=== PATIENT | female | born 1965 | race African-American/Black ===

== ENCOUNTER 2018-05-16 15:41 | Inpatient (IN) | payer OTHER, SELFPAY ==
[2018-05-16 17:20] LABS: Base Excess-Venous -0.4 mmol/L (0 (+/- 2.5)); Bicarbonate (HCO3v) 23.1 mmol/L (1.0-85.0); CO2 Tension (PvCO2) 33.4 mmHg (41.0-51.0); Calcium, Ionized 1.02 mmol/L (1.12-1.32); Hemoglobin - Calc 12.3 g/dL (12.0-18.0); O2 Tension (PvO2) 47.4 mmHg (35.0-45.0); Potassium 4.3 mmol/L (3.4-4.7); T. Carbon Dioxide 24.1 mmol/L (1.0-85.0); pH (Venous) 7.447 (7.35-7.45); vO2 Saturation-calc 85.1 % (94-98)
--- NOTE | 2018-05-16 17:37 | RAD ---
THREE VIEWS RIGHT FOOT: 05/16/18 HISTORY: Swelling and ulcerations. COMPARISON: 03/12/03. FINDINGS: Again noted is amputation of the third and fourth toes at the level of the distal metatarsals. Previo usly seen periosteal reaction on prior exam has resolved. There are prominent erosions at the first t arsometatarsal joint and the base of the first metatarsal is displaced medially with respect to the f irst cuneiform bone. There is varus deformity of the second metatarsophalangeal joint without osseous erosions. No acute fracture is seen. Prominent degenerative changes are seen involving the tarsal rick cory. Findings at the first tarsometatarsal joint are probably related to osteoarthritis as well with associated erosions. There is irregularity and joint space narrowing involving the remaining tarsomet atarsal joints. No osseous destruction is seen on this exam. Prominent degenerative changes are also seen at the talonavicular joint. Tiny plantar calcaneal enthe sophyte is present. There is a pes planus deformity. There is soft tissue irregularity on the plantar aspect of the foot likely related to patient's known areas of ulceration and soft tissue wounds. IMPRESSION: 1. Findings likely related to prominent degenerative changes at the level of the mid foot and in volving the tarsometatarsal joints. There are prominent erosions and osteophytes involving the first tarsometatarsal joint with the base of the first metatarsal displaced medially. 2. Amputation of the third and fourth toes. 3. Pes planus deformity. 4. While no osseous destruction is seen to suggest osteomyelitis, MRI with and without IV contra st would be the better study of choice to evaluate for osteomyelitis. POS: JORJE
[2018-05-16 17:45] LABS: #Eosinphils 0.2 thou/uL (0.0-0.7); #Lymphocytes 1.6 thou/uL (1.20-3.40); #Monocytes 0.9 thou/uL (0.11-0.59); #Neutrophils 10.4 thou/uL (1.40-6.50); %Basophils 0.3 % (0.0-1.0); %Eosinophils 1.7 % (0.0-10.0); %Lymphocytes 12.3 % (21.0-51.0); %Monocytes 7.1 % (0.0-10.0); %Neutrophils 78.6 % (42.0-75.0); Hemoglobin 10.3 g/dL (12.0-16.0); Mean Corpuscular HGB CONC 33.9 g/dL (32.0-36.0); Mean Corpuscular Hemoglobin 27.1 pg (27.0-31.0); Mean Corpuscular Volume 79.9 fL (78.0-98.0); Mean Platelet Volume 7.8 fL (7.4-10.4); Platelet Count 500 thou/uL (130-400); White Blood Cell (WBC) Count 13.2 thou/uL (4.8-10.8)
[2018-05-16 17:48] LABS: ALT (SGPT) 9 U/L (8-55); AST (SGOT) 15 U/L (5-34); Albumin 3.4 g/dL (3.5-5.0); Alkaline Phosphatase 131 U/L (40-150); Anion Gap 17 mmol/L (10-20); BUN (Urea Nitrogen) 34 mg/dL (9.8-20.1); Bilirubin, Total 0.3 mg/dL (0.2-1.2); Calc. Creatinine Clearance 0 mL/min (70-130); Calcium 9.2 mg/dL (7.8-10.44); Carbon Dioxide 21 mmol/L (22-29); Chloride 97 mmol/L (98-107); Estimated GFR-MDRD 26; Globulin 5.8 g/dL (2.4-3.5); Glucose 311 mg/dL (70-105); Potassium 4.8 mmol/L (3.5-5.1); Protein, Total 9.2 g/dL (6.0-8.3); Sodium 130 mmol/L (136-145)
[2018-05-16] MEDS ORDERED: cefTRIAXone\\ROCEPHIN 1 GM VIAL ONE (18:07)
[2018-05-16] MEDS ORDERED: VANCOMYCIN/ RENALLY ADJUST ANTIBIOTICS IVPB PRN (20:11)
[2018-05-16] MEDS ORDERED: Acetaminophen 650 MG Suppository PR PRN (20:12)
[2018-05-16] MEDS ORDERED: Bisacodyl 5 MG TAB PO PRN (20:12)
[2018-05-16] MEDS ORDERED: Ondansetron HCl/PF 4 MG/2 ML Vial IVP PRN (20:12)
[2018-05-16] MEDS ORDERED: Dextrose 5% in Water 1,000 ML IV PRN (20:40)
--- NOTE | 2018-05-16 20:50 | HP ---
DATE OF ADMISSION: 05/16/2018 PRIMARY CARE PROVIDER: Rodrigue Poole M.D. CHIEF COMPLAINT: Right foot ulcer. HISTORY OF PRESENT ILLNESS: Ms. Lugo is a pleasant 53-year-old lady who was seen at [facility] on 05/16/2018. She reports that approximately a month ago, she stepped on a glass. She was seen at [facility] and was started on antibiotics, but she cannot recall the name of the antibiotic. She was also seen by Podiatry service. She reports that the ulcers healed well approximately 2 weeks ago. She was advised to soak the foot, which she has been doing on a daily basis. She started having some blood from the wound yesterday when she was soaking her foot. She was seen by her urologist today and sent to the emergency room. She denies any fevers or chills. She denies any nausea, vomiting, diarrhea or abdominal pain. She denies any pain in her right foot, but reports that she sometimes has tingling-like sensation over the foot. The patient also reports that while the initial ulcer was only on the plantar aspect of the foot, now it appears to have extended around her foot to the top of her foot. REVIEW OF SYSTEMS: All other systems reviewed and found to be negative. PAST MEDICAL HISTORY: Morbid obesity, diabetes mellitus type 2, hypertension, glaucoma and dyslipidemia. PAST SURGICAL HISTORY: Right third and fourth toe amputation, cataract surgery. ALLERGIES: PENICILLIN, LATEX. CURRENT MEDICATIONS: Aspirin 81 mg daily, hydrochlorothiazide 12.5 mg daily, metformin 500 mg daily, Novolin N 40 units subcutaneously 2 times a day, Novolin R by sliding scale and simvastatin 20 mg at bedtime. FAMILY HISTORY: No family history of premature coronary artery disease. SOCIAL HISTORY: Patient chews tobacco, reports occasional alcohol use, denies recreational drug use. PHYSICAL EXAMINATION: GENERAL: Ms. Lugo is awake and alert, not in acute distress. VITAL SIGNS: Blood pressure is 167/78, pulse 90, respiratory rate 18 and oxygen saturation 100% on room air. She is afebrile. EYES: No scleral icterus. No conjunctival pallor. ENT: Moist mucosal membranes. No oropharyngeal erythema or exudates. NECK: Supple, nontender. Trachea is midline. RESPIRATORY: Accessory muscles of breathing are not active. Chest wall movements are symmetric bilaterally. LUNGS: Clear to auscultation without wheeze, rhonchi or crepitations. CARDIOVASCULAR: S1 and S2 are heard, regular. Peripheral pulses palpable. No carotid bruit, no pericardial rub. ABDOMEN: Soft, distended, nontender, bowel sounds heard, no hepatomegaly, no splenomegaly. NEUROLOGIC: Cranial nerves II-XII intact. Deep tendon reflexes 2+. MUSCULOSKELETAL: Power is 5/5 in all 4 extremities. She is status post amputation of right third and fourth toes. SKIN: She has an ulcer on the plantar aspect of the right foot, extending around the lateral aspect of the foot to the dorsum of the foot and extends to the area of amputated third and fourth toes. There is purulent drainage. LYMPHATIC: No cervical lymphadenopathy. PSYCHIATRIC: Normal mood, normal affect. The patient is oriented to person, place and time. LABORATORY DATA: Ms. Lugo' labs and investigations were reviewed. She had x- rays of the right foot, which showed findings likely related to prominent degenerative changes at the level of the mid foot and involving tarsometatarsal joints. She has prominent erosions and what appeared to be prominent osteophytes involving the first tarsometatarsal joint and the base of the first metatarsal displaced medially, according to radiologist. There was no osseous destruction to suggest osteomyelitis, but radiologist advises MRI would be the better study of choice with and without contrast to evaluate for osteomyelitis if this is a clinical concern. She has leukocytosis with 13,200 white cells, of which 78.6% are neutrophils, thrombocythemia with platelet count of 500,000, normocytic anemia with hemoglobin 10.3, decreased sodium of 130, normal potassium, elevated blood urea nitrogen of 34, elevated creatinine of 2.36, last known creatinine 1.34 on 12/31/2013, elevated serum total protein of 9.2, elevated globulin level of 5.8 and decreased albumin level of 3.4. ASSESSMENT AND PLAN: Ms. Lugo is a pleasant 53-year-old lady who was seen at [facility] on 05/16/2018. Her problem list includes: 1. Diabetic foot infection: She is presenting with diabetic foot infection, having failed outpatient therapy with oral antibiotics. She will be admitted to the hospital for further management. I will continue her on vancomycin and ceftriaxone, which have already been started. General Surgery and Vascular Surgery services have been consulted by emergency room physician, we will await their opinion. 2. Diabetes mellitus type 2: Hold metformin for now given her renal insufficiency, start Accu-Cheks and insulin sliding scale. 3. Acute on chronic renal insufficiency: Hold nephrotoxic medications, trial intravenous fluids, especially since blood urea nitrogen is also elevated, recheck creatinine. 4. Dyslipidemia: Continue statin. 5. Hypertension: Monitor vital signs, titrate antihypertensives as needed. 6. Elevated globulin levels: She has elevated total protein and globulin as well as acute on chronic renal insufficiency. Recheck her liver function tests. If they continue to be elevated, she may need further workup for entities such as multiple myeloma. Many thanks for allowing me to participate in your patient's care. Please feel free to contact me with any questions or concerns. LEVEL OF RISK: Moderate. LEVEL OF COMPLEXITY: Moderate. MTDD
[2018-05-16] MEDS ORDERED: cefTRIAXone\\ROCEPHIN 1 GM in Sodium Chloride 0.9% 100 ML IVPB SCH (21:00)
[2018-05-16] MEDS: Sodium Chloride 0.9% 1,000 ML IV SCH (22:01)
[2018-05-16] MEDS: Heparin 5,000 UNITS/ML VIAL SC SCH (22:05)
[2018-05-17 01:07] VITALS: BMI 34.3
[2018-05-17 04:23] LABS: #Eosinphils 0.3 thou/uL (0.0-0.7); #Lymphocytes 2.1 thou/uL (1.20-3.40); #Monocytes 0.8 thou/uL (0.11-0.59); #Neutrophils 8.3 thou/uL (1.40-6.50); %Basophils 0.2 % (0.0-1.0); %Eosinophils 2.9 % (0.0-10.0); %Lymphocytes 18.1 % (21.0-51.0); %Monocytes 6.8 % (0.0-10.0); %Neutrophils 72.1 % (42.0-75.0); Hemoglobin 10.3 g/dL (12.0-16.0); Mean Corpuscular HGB CONC 34.2 g/dL (32.0-36.0); Mean Corpuscular Hemoglobin 27.3 pg (27.0-31.0); Mean Corpuscular Volume 79.9 fL (78.0-98.0); Mean Platelet Volume 7.3 fL (7.4-10.4); Platelet Count 488 thou/uL (130-400); Red Blood Cell (RBC) Count 3.77 mill/uL (4.20-5.40); White Blood Cell (WBC) Count 11.5 thou/uL (4.8-10.8)
[2018-05-17 04:44] LABS: ALT (SGPT) 7 U/L (8-55); AST (SGOT) 9 U/L (5-34); Albumin 3.2 g/dL (3.5-5.0); Alkaline Phosphatase 126 U/L (40-150); Anion Gap 15 mmol/L (10-20); BUN (Urea Nitrogen) 26 mg/dL (9.8-20.1); Bilirubin, Total 0.2 mg/dL (0.2-1.2); Calc. Creatinine Clearance 60 mL/min (70-130); Carbon Dioxide 21 mmol/L (22-29); Chloride 100 mmol/L (98-107); Estimated GFR-MDRD 39; Globulin 5.4 g/dL (2.4-3.5); Glucose 327 mg/dL (70-105); Potassium 4.1 mmol/L (3.5-5.1); Protein, Total 8.6 g/dL (6.0-8.3); Sodium 132 mmol/L (136-145)
[2018-05-17] MEDS: HumaLOG 300 UNITS/3 ML VIAL SC PRN ×3 (07:52→17:08)
[2018-05-17] MEDS ORDERED: Brimonidine Tartrate 0.2% Ophth Soln 5 ml Bottle EA EYE SCH (09:00)
[2018-05-17] MEDS: Aspirin 81 mg Enteric Coated Tablet PO SCH (10:07)
[2018-05-17] MEDS: Sodium Chloride 0.9% 1,000 ML IV SCH ×2 (10:07→12:43)
[2018-05-17] MEDS: Heparin 5,000 UNITS/ML VIAL SC SCH ×3 (10:08→20:24)
[2018-05-17] MEDS: Hydrochlorothiazide 25 MG TAB PO SCH (10:08)
[2018-05-17] MEDS: Insulin NPH/Reg Insulin Hm 300 UNITS/3 ML VIAL SC SCH ×2 (10:09→20:27)
--- NOTE | 2018-05-17 12:17 | PDOC.PN ---
- Subjective Encounter Start Date: 05/17/18 Encounter Start Time: 10:45 Subjective: no pain in her right foot -: comfortable, watching tv - Objective MAR Reviewed: Yes Vital Signs & Weight: Vital Signs (12 hours) Temp Pulse Resp BP Pulse Ox 05/17/18 11:41 97.6 F 87 22 H 162/93 H 96 05/17/18 08:00 97.6 F 87 20 96 05/17/18 07:51 97.6 F 87 20 139/82 96 05/17/18 05:13 97.8 F 86 18 135/79 93 L 05/17/18 01:00 97.5 F L 87 18 139/67 97 05/17/18 00:43 97.5 F L 87 18 97 05/17/18 00:33 98 F 91 18 Weight Admit Weight 212 lb 15.465 oz Weight 212 lb 15.465 oz Result Diagrams: 05/17/18 04:03 05/17/18 04:03 Additional Labs: Accuchecks 05/17/18 05/17/18 05/16/18 11:43 05:09 21:22 POC Glucose 335 H 330 H 288 H 05/16/18 15:55 POC Glucose 343 H Phys Exam - Physical Examination HEENT: PERRLA, moist MMs Neck: no JVD, supple Respiratory: no wheezing, no rales Cardiovascular: RRR, no significant murmur Gastrointestinal: soft, non-tender, positive bowel sounds right foot in dressing, edema++ Neurological: non-focal, moves all 4 limbs Psychiatric: normal affect, A&O x 3 Dx/Plan (1) Foot abscess, right Code(s): L02.611 - CUTANEOUS ABSCESS OF RIGHT FOOT Status: Acute Comment: to r/o osteomyelitis (2) DM type 2 (diabetes mellitus, type 2) Status: Chronic Qualifiers: Diabetes mellitus termite helper insulin use: with skilled nursing use Diabetes mellitus complication status: with kidney complications Diabetes mellitus complication detail: with chronic kidney disease Chronic kidney disease stage : stage 3 (moderate) Qualified Code(s): E11.22 - Type 2 diabetes mellitus with diabetic chronic kidney disease; N18.3 - Chronic kidney disease, stage 3 ( moderate); Z79.4 - nursing home (current) use of insulin (3) NATAN (acute kidney injury) Code(s): N17.9 - ACUTE KIDNEY FAILURE, UNSPECIFIED Status: Acute (4) Anemia Code(s): D64.9 - ANEMIA, UNSPECIFIED Status: Chronic Qualifiers: Anemia type: unspecified type Qualified Code(s): D64.9 - Anemia, unspecified (5) Metabolic acidosis Code(s): E87.2 - ACIDOSIS Status: Acute (6) Sepsis Code(s): A41.9 - SEPSIS, UNSPECIFIED ORGANISM Status: Acute Qualifiers: Sepsis type: sepsis due to unspecified organism Qualified Code(s): A41.9 - Sepsis, unspecified organism Comment: sec to right foot infection - Plan is on vanc and ceftriaxone -: await surgical consultation, likely may need amp/debridements -: MRI if osteomyelitis is uncertain on clinical exam -: reduce iv fluids to 50mls/hr -: wound care * . Review of Systems - Medications/Allergies Allergies/Adverse Reactions: Allergies Allergy/AdvReac Type Severity Reaction Status Date / Time black walnut Allergy Verified 12/26/13 15:40 peanut Allergy Verified 12/26/13 15:40 Penicillins Allergy Verified 12/26/13 15:26 shellfish derived Allergy Verified 12/26/13 15:26 Medications: Current Medications Acetaminophen (Tylenol) 650 mg PO Q4H PRN PRN Reason: Headache/Fever or Pain Acetaminophen (Tylenol) 650 mg VA Q4H PRN PRN Reason: Headache/Fever or Pain Aspirin (Ecotrin) 81 mg PO DAILY [facility] Last Admin: 05/17/18 10:07 Dose: 81 mg Bisacodyl (Dulcolax) 10 mg PO DAILYPRN PRN PRN Reason: Constipation Brimonidine Tartrate (Alphagan 0.2% [facility]) 1 drop EA EYE BID [facility] Last Admin: 05/17/18 10:22 Dose: Not Given Dextrose/Water (Dextrose 50%) 25 gm SLOW IVP PRN PRN PRN Reason: Hypoglycemia Glucagon (Glucagon) 1 mg IM PRN PRN PRN Reason: Hypoglycemia Heparin Sodium (Porcine) (Heparin) 5,000 units SC TID [facility] Last Admin: 05/17/18 10:08 Dose: 5,000 units Hydrochlorothiazide (Hydrochlorothiazide) 12.5 mg PO DAILY [facility] Last Admin: 05/17/18 10:08 Dose: 12.5 mg Vancomycin HCl 1.25 gm/ Sodium (Chloride) 250 mls @ 250 mls/hr IVPB Q24HR@2000 EDELM[facility]A Sodium Chloride (Normal Saline 0.9%) 1,000 mls @ 100 mls/hr IV .Q10H [facility] Last Admin: 05/17/18 10:07 Dose: 1,000 mls Dextrose/Water (D5w) 1,000 mls @ 0 mls/hr IV .Q0M PRN PRN Reason: Hypoglycemia Ceftriaxone Sodium 1 gm/ (Sodium Chloride) 100 mls @ 200 mls/hr IVPB Q24HR@ 1800 [facility] Insulin Human Isoph/Insulin Regular (Humulin 70/30) 40 units SC BID [facility] Last Admin: 05/17/18 10:09 Dose: 40 unit Insulin Human Lispro (Humalog) 0 units SC .MILD SLIDING SCALE PRN PRN Reason: Mild Correctional Scale Last Admin: 05/17/18 07:52 Dose: 5 unit Latanoprost (Xalatan 0.005% Ophth Soln) 1 drop EA EYE HS [facility] Miscellaneous Medication (Pharmacy To Dose) 1 each IVPB PRN PRN PRN Reason: Pharmacy to dose Ondansetron HCl (Zofran) 4 mg IVP Q6H PRN PRN Reason: Nausea/Vomiting Simvastatin (Zocor) 10 mg PO HS [facility] Sodium Chloride (Flush - Normal Saline) 10 ml IVF Q12HR [facility] Last Admin: 05/17/18 10:10 Dose: 10 ml Sodium Chloride (Flush - Normal Saline) 10 ml IVF PRN PRN PRN Reason: Saline Flush Timolol Maleate (Timoptic 0.5% Ophth Soln) 1 drop EA EYE BID [facility]
[2018-05-17] MEDS ORDERED: Loratadine 10 MG TAB PO SCH (16:15)
[2018-05-17] MEDS: cefTRIAXone\\ROCEPHIN 1 GM in Sodium Chloride 0.9% 100 ML IVPB SCH (17:02)
[2018-05-17] MEDS: Vancomycin HCl 1.25 GM in Sodium Chloride 0.9% 250 ML 250 ML IVPB SCH (20:21)
[2018-05-17] MEDS: Simvastatin 5 MG TAB PO SCH (20:26)
[2018-05-17] MEDS ORDERED: Timolol 0.5% Ophth Soln 5 ml Bottle EA EYE SCH (21:00)
[2018-05-17] MEDS ORDERED: Latanoprost 0.005% Ophth Soln 2.5 ml Bottle EA EYE SCH (21:00)
--- NOTE | 2018-05-17 22:29 | CON ---
DATE OF CONSULTATION: 05/17/2018 REQUESTING PHYSICIAN: Dr. Vaibhav Strange. PRIMARY CARE PHYSICIAN: Dr. Rodrigue Poole. CHIEF COMPLAINT: Open wound on the right foot. HISTORY OF PRESENT ILLNESS: The patient is a 53-year-old, obese, diabetic woman who chews tobacco, b ut does not smoke. She describes a few weeks ago wearing flip flops and apparently stepping on some glass that had become unearthed in the area where the family member was working. She did not notice that she had stepped on the glass and embedded in her foot and apparently she has a dense enough neur opathy that she did not realize it even after she changed the shoes and continued cutting the foot fr om the glass. It was not until blood was starting to soak through the shoe that she realized somethi ng was wrong. Evidently, she was initially treated in the emergency room at one of the [facility] and per her description, the wounds were healing well, but when seen by chuck tender as an o utpatient today, she was advised to go to the emergency room. PAST MEDICAL HISTORY: Significant for hypertension, diabetes, glaucoma, and dyslipidemia. She has u ndergone previous amputation of the third and fourth toes on that foot. MEDICATIONS: Aspirin, hydrochlorothiazide, simvastatin, metformin, scheduled Novolin N insulin twice a day and a regular insulin sliding scale. PHYSICAL EXAMINATION: GENERAL: She is an obese woman in no distress, she is then afebrile. VITAL SIGNS: Her most recent temperature is 97.6, heart rate 87, blood pressure 162/93. She is 5 fe et and 6 inches and weighs 213 pounds. EXTREMITIES: She has palpable femoral pulses bilaterally and bounding dorsalis pedis pulses on the r ight foot. She has what appears to be granulation tissue overlying stumps of amputated third and fou rth toes, some eschar on the dorsal lateral aspect of the distal foot and some sinus tracts laterally . LABORATORY DATA: Showed white count of 13.2. On admission, her creatinine was 2.36, this morning it is 1.69. Her glucoses have mostly been in the high 200s to the mid 300s, most recent hemoglobin A1c in our system here was in 2013, which was 14.3. IMPRESSION AND RECOMMENDATIONS: This seems to be related more to the traumatic injury that she has h ad and the subsequent problems related to that rather than one affected by vascularity. She has a rick unding dorsalis pedis pulse and I do not think that any further vascular evaluation or intervention i s necessary.
[2018-05-18] MEDS: Acetaminophen 325 MG TAB PO PRN ×3 (04:02→21:35)
[2018-05-18] MEDS: Sodium Chloride 0.9% 1,000 ML IV SCH (08:52)
[2018-05-18] MEDS: Aspirin 81 mg Enteric Coated Tablet PO SCH (08:53)
[2018-05-18] MEDS: Heparin 5,000 UNITS/ML VIAL SC SCH ×3 (08:53→20:44)
[2018-05-18] MEDS: Hydrochlorothiazide 25 MG TAB PO SCH (08:53)
[2018-05-18] MEDS: Insulin NPH/Reg Insulin Hm 300 UNITS/3 ML VIAL SC SCH ×2 (08:54→20:52)
--- NOTE | 2018-05-18 10:48 | PDOC.PN ---
- Subjective Encounter Start Date: 05/18/18 Encounter Start Time: 07:50 Subjective: no sob or pain in her foot -: Pt says saw her and told she might need forefoot amp by gen -: -surgeon, she is not aware of Surgeon's name. - Objective MAR Reviewed: Yes Vital Signs & Weight: Vital Signs (12 hours) Temp Pulse Resp BP Pulse Ox 05/18/18 08:00 97.6 F 82 18 131/76 97 05/18/18 04:00 97.6 F 97 20 145/88 H 93 L Weight Admit Weight 212 lb 15.465 oz Weight 212 lb 15.465 oz I&O: 05/17/18 05/18/18 05/19/18 06:59 06:59 06:59 Intake Total 2699 Balance 2699 Result Diagrams: 05/17/18 04:03 05/17/18 04:03 Additional Labs: Accuchecks 05/18/18 05/17/18 05/17/18 03:48 20:18 16:54 POC Glucose 93 195 H 231 H 05/17/18 05/17/18 15:00 11:43 POC Glucose 251 H 335 H Phys Exam - Physical Examination HEENT: PERRLA, moist MMs Neck: no JVD, supple Respiratory: no wheezing, no rales Cardiovascular: RRR, no significant murmur Gastrointestinal: soft, non-tender, positive bowel sounds Musculoskeletal: pulses present right foot in dressing Neurological: non-focal, moves all 4 limbs Psychiatric: normal affect, A&O x 3 Dx/Plan (1) Foot abscess, right Code(s): L02.611 - CUTANEOUS ABSCESS OF RIGHT FOOT Status: Acute Comment: to r/o osteomyelitis (2) DM type 2 (diabetes mellitus, type 2) Status: Chronic Qualifiers: Diabetes mellitus manager intermediate insulin use: with manager intermediate use Diabetes mellitus complication status: with kidney complications Diabetes mellitus complication detail: with chronic kidney disease Chronic kidney disease stage : stage 3 (moderate) Qualified Code(s): E11.22 - Type 2 diabetes mellitus with diabetic chronic kidney disease; N18.3 - Chronic kidney disease, stage 3 ( moderate); Z79.4 - predatory animal exterminator (current) use of insulin (3) NATAN (acute kidney injury) Code(s): N17.9 - ACUTE KIDNEY FAILURE, UNSPECIFIED Status: Acute (4) Anemia Code(s): D64.9 - ANEMIA, UNSPECIFIED Status: Chronic Qualifiers: Anemia type: unspecified type Qualified Code(s): D64.9 - Anemia, unspecified (5) Metabolic acidosis Code(s): E87.2 - ACIDOSIS Status: Acute (6) Sepsis Code(s): A41.9 - SEPSIS, UNSPECIFIED ORGANISM Status: Acute Qualifiers: Sepsis type: sepsis due to unspecified organism Qualified Code(s): A41.9 - Sepsis, unspecified organism Comment: sec to right foot infection - Plan on vanc and ceftriaxone -: d/w , will see patient later today -: I am not sure if spoke to another surgeon/there is no consul -: -t on [employer]. -: dc iv fluids, continue asp, zocor, hctz, 70/30 insulin as of now * . Review of Systems - Medications/Allergies Allergies/Adverse Reactions: Allergies Allergy/AdvReac Type Severity Reaction Status Date / Time black walnut Allergy Verified 12/26/13 15:40 peanut Allergy Verified 12/26/13 15:40 Penicillins Allergy Verified 12/26/13 15:26 shellfish derived Allergy Verified 12/26/13 15:26 Medications: Current Medications Acetaminophen (Tylenol) 650 mg PO Q4H PRN PRN Reason: Headache/Fever or Pain Last Admin: 05/18/18 04:02 Dose: 650 mg Acetaminophen (Tylenol) 650 mg NM Q4H PRN PRN Reason: Headache/Fever or Pain Aspirin (Ecotrin) 81 mg PO DAILY [facility] Last Admin: 05/18/18 08:53 Dose: 81 mg Bisacodyl (Dulcolax) 10 mg PO DAILYPRN PRN PRN Reason: Constipation Dextrose/Water (Dextrose 50%) 25 gm SLOW IVP PRN PRN PRN Reason: Hypoglycemia Glucagon (Glucagon) 1 mg IM PRN PRN PRN Reason: Hypoglycemia Heparin Sodium (Porcine) (Heparin) 5,000 units SC TID [facility] Last Admin: 05/18/18 08:53 Dose: 5,000 units Hydrochlorothiazide (Hydrochlorothiazide) 12.5 mg PO DAILY [facility] Last Admin: 05/18/18 08:53 Dose: 12.5 mg Vancomycin HCl 1.25 gm/ Sodium (Chloride) 250 mls @ 250 mls/hr IVPB Q24HR@2000 [facility] Last Admin: 05/17/18 20:21 Dose: 250 mls Dextrose/Water (D5w) 1,000 mls @ 0 mls/hr IV .Q0M PRN PRN Reason: Hypoglycemia Ceftriaxone Sodium 1 gm/ (Sodium Chloride) 100 mls @ 200 mls/hr IVPB Q24HR@ 1800 [facility] Last Admin: 05/17/18 17:02 Dose: 100 mls Insulin Human Isoph/Insulin Regular (Humulin 70/30) 40 units SC BID [facility] Last Admin: 05/18/18 08:54 Dose: 40 unit Insulin Human Lispro (Humalog) 0 units SC .MILD SLIDING SCALE PRN PRN Reason: Mild Correctional Scale Last Admin: 05/17/18 17:08 Dose: 4 unit Miscellaneous Medication (Pharmacy To Dose) 1 each IVPB PRN PRN PRN Reason: Pharmacy to dose Ondansetron HCl (Zofran) 4 mg IVP Q6H PRN PRN Reason: Nausea/Vomiting Simvastatin (Zocor) 10 mg PO HS [facility] Last Admin: 05/17/18 20:26 Dose: 10 mg Sodium Chloride (Flush - Normal Saline) 10 ml IVF Q12HR [facility] Last Admin: 05/18/18 08:54 Dose: Not Given Sodium Chloride (Flush - Normal Saline) 10 ml IVF PRN PRN PRN Reason: Saline Flush
[2018-05-18] MEDS: cefTRIAXone\\ROCEPHIN 1 GM in Sodium Chloride 0.9% 100 ML IVPB SCH (17:45)
[2018-05-18] MEDS: Simvastatin 5 MG TAB PO SCH (20:45)
[2018-05-18] MEDS ORDERED: Loratadine 10 MG TAB PO SCH (20:45)
[2018-05-18] MEDS: Vancomycin HCl 1.25 GM in Sodium Chloride 0.9% 250 ML 250 ML IVPB SCH (20:50)
[2018-05-18] MEDS: Diabetic Tussin 200 MG/10 ML UDCUP PO PRN (21:29)
[2018-05-18 21:30] LABS: Vancomycin, Trough 10.5 ug/mL
[2018-05-19] MEDS: Dextrose 50% Abboject 50 ML SYRINGE SLOW IVP PRN ×2 (02:42→05:17)
[2018-05-19] MEDS ORDERED: Dextrose 5 %-0.45 % NaCl 1,000 ML IV SCH (03:15)
[2018-05-19] MEDS: Heparin 5,000 UNITS/ML VIAL SC SCH ×3 (08:57→20:53)
[2018-05-19] MEDS: Hydrochlorothiazide 25 MG TAB PO SCH (08:58)
[2018-05-19] MEDS: Aspirin 81 mg Enteric Coated Tablet PO SCH (08:59)
[2018-05-19] MEDS: Vancomycin HCl 750 MG in Sodium Chloride 0.9% 250 ML 250 ML IVPB SCH ×2 (09:55→20:54)
[2018-05-19 10:18] LABS: #Eosinphils 0.3 thou/uL (0.0-0.7); #Lymphocytes 1.5 thou/uL (1.20-3.40); #Monocytes 0.5 thou/uL (0.11-0.59); #Neutrophils 6.4 thou/uL (1.40-6.50); %Basophils 0.3 % (0.0-1.0); %Eosinophils 3.7 % (0.0-10.0); %Lymphocytes 16.9 % (21.0-51.0); %Monocytes 5.5 % (0.0-10.0); %Neutrophils 73.6 % (42.0-75.0); Hemoglobin 11.2 g/dL (12.0-16.0); Mean Corpuscular HGB CONC 32.7 g/dL (32.0-36.0); Mean Corpuscular Hemoglobin 26.4 pg (27.0-31.0); Mean Corpuscular Volume 80.7 fL (78.0-98.0); Mean Platelet Volume 6.8 fL (7.4-10.4); Platelet Count 536 thou/uL (130-400); RBC Distribution Width 12.1 % (11.5-14.5); Red Blood Cell (RBC) Count 4.26 mill/uL (4.20-5.40); White Blood Cell (WBC) Count 8.7 thou/uL (4.8-10.8)
[2018-05-19] MEDS ORDERED: Fentanyl 100 MCG/2 ML VIAL ONE (10:26)
[2018-05-19 10:41] LABS: Anion Gap 14 mmol/L (10-20); BUN (Urea Nitrogen) 13 mg/dL (9.8-20.1); Calc. Creatinine Clearance 77 mL/min (70-130); Calcium 9.6 mg/dL (7.8-10.44); Carbon Dioxide 22 mmol/L (22-29); Chloride 103 mmol/L (98-107); Estimated GFR-MDRD 51; Glucose 91 mg/dL (70-105); Potassium 4.3 mmol/L (3.5-5.1); Sodium 135 mmol/L (136-145)
[2018-05-19] MEDS ORDERED: Promethazine HCl 25 MG/ML VIAL SLOW IVP PRN (11:09)
[2018-05-19] MEDS ORDERED: Promethazine HCl 25 MG/ML VIAL IM PRN (11:09)
[2018-05-19] MEDS ORDERED: Meperidine HCl/PF 25 MG/ML VIAL SLOW IVP PRN (11:09)
--- NOTE | 2018-05-19 12:32 | PDOC.PN ---
- Subjective Encounter Start Date: 05/19/18 Encounter Start Time: 14:40 Subjective: no sob, feels better - Objective MAR Reviewed: Yes Vital Signs & Weight: Vital Signs (12 hours) Temp Pulse Resp BP BP Pulse Ox 05/19/18 08:00 97.3 F L 98 20 149/87 H 96 05/19/18 04:00 97.4 F L 88 20 162/86 H 96 Weight Admit Weight 212 lb 15.465 oz Weight 212 lb 15.465 oz I&O: 05/18/18 05/19/18 05/20/18 06:59 06:59 06:59 Intake Total 2699 1050 Balance 2699 1050 Result Diagrams: 05/20/18 03:54 05/20/18 03:54 Additional Labs: Accuchecks 05/19/18 05/19/18 05/19/18 08:53 05:44 05:01 POC Glucose 103 166 H 63 L 05/19/18 05/19/18 05/18/18 02:53 02:38 20:11 POC Glucose 179 H 56 L* 306 H 05/18/18 17:01 POC Glucose 151 H Phys Exam - Physical Examination HEENT: PERRLA, moist MMs Neck: no JVD, supple Respiratory: no wheezing, no rales Cardiovascular: RRR, no significant murmur Gastrointestinal: soft, non-tender, positive bowel sounds Musculoskeletal: pulses present, edema present right foot in dressing Neurological: non-focal, moves all 4 limbs Psychiatric: normal affect, A&O x 3 Dx/Plan (1) Foot abscess, right Code(s): L02.611 - CUTANEOUS ABSCESS OF RIGHT FOOT Status: Acute Comment: s/ p debribement and amp of toe (2) DM type 2 (diabetes mellitus, type 2) Status: Chronic Qualifiers: 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 use Diabetes mellitus complication status: with kidney complications Diabetes mellitus complication detail: with chronic kidney disease Chronic kidney disease stage : stage 3 (moderate) Qualified Code(s): E11.22 - Type 2 diabetes mellitus with diabetic chronic kidney disease; N18.3 - Chronic kidney disease, stage 3 ( moderate); Z79.4 - manager long term care (current) use of insulin (3) NATAN (acute kidney injury) Code(s): N17.9 - ACUTE KIDNEY FAILURE, UNSPECIFIED Status: Acute (4) Anemia Code(s): D64.9 - ANEMIA, UNSPECIFIED Status: Chronic Qualifiers: Anemia type: unspecified type Qualified Code(s): D64.9 - Anemia, unspecified (5) Metabolic acidosis Code(s): E87.2 - ACIDOSIS Status: Acute (6) Sepsis Code(s): A41.9 - SEPSIS, UNSPECIFIED ORGANISM Status: Acute Qualifiers: Sepsis type: sepsis due to unspecified organism Qualified Code(s): A41.9 - Sepsis, unspecified organism Comment: sec to right foot infection - Plan on ceftr and vanc -: reduce 70/30 to 20u bid -: continue D5 1/2NS for this afternoon -: appreciate 's help * . Review of Systems - Medications/Allergies Allergies/Adverse Reactions: Allergies Allergy/AdvReac Type Severity Reaction Status Date / Time black walnut Allergy Verified 12/26/13 15:40 peanut Allergy Verified 12/26/13 15:40 Penicillins Allergy Verified 12/26/13 15:26 shellfish derived Allergy Verified 12/26/13 15:26 Medications: Current Medications Acetaminophen (Tylenol) 650 mg PO Q4H PRN PRN Reason: Headache/Fever or Pain Last Admin: 05/18/18 21:35 Dose: 650 mg Acetaminophen (Tylenol) 650 mg [place] Q4H PRN PRN Reason: Headache/Fever or Pain Aspirin (Ecotrin) 81 mg PO DAILY [facility] Last Admin: 05/19/18 08:59 Dose: Not Given Bisacodyl (Dulcolax) 10 mg PO DAILYPRN PRN PRN Reason: Constipation Dextrose/Water (Dextrose 50%) 25 gm SLOW IVP PRN PRN PRN Reason: Hypoglycemia Last Admin: 05/19/18 05:17 Dose: 25 gm Fentanyl (Pacu-Sublimaze) 50 mcg SLOW IVP Q10MIN PRN PRN Reason: Moderate to Severe Pain (6-10) Stop: 05/19/18 14:09 Glucagon (Glucagon) 1 mg IM PRN PRN PRN Reason: Hypoglycemia Guaifenesin (Robitussin Sf) 200 mg PO Q4H PRN PRN Reason: Cough Last Admin: 05/18/18 21:29 Dose: 200 mg Heparin Sodium (Porcine) (Heparin) 5,000 units SC TID [facility] Last Admin: 05/19/18 08:57 Dose: Not Given Hydrochlorothiazide (Hydrochlorothiazide) 12.5 mg PO DAILY [facility] Last Admin: 05/19/18 08:58 Dose: Not Given Dextrose/Water (D5w) 1,000 mls @ 0 mls/hr IV .Q0M PRN PRN Reason: Hypoglycemia Ceftriaxone Sodium 1 gm/ (Sodium Chloride) 100 mls @ 200 mls/hr IVPB Q24HR@ 1800 [facility] Last Admin: 05/18/18 17:45 Dose: 100 mls Vancomycin HCl 750 mg/ Sodium (Chloride) 250 mls @ 250 mls/hr IVPB Q12HR [facility] Last Admin: 05/19/18 09:55 Dose: 250 mls Dextrose/Sodium Chloride (D5 1/2 Ns) 1,000 mls @ 100 mls/hr IV .Q10H [facility] Last Admin: 05/19/18 03:22 Dose: 1,000 mls Insulin Human Isoph/Insulin Regular (Humulin 70/30) 20 units SC BID [facility] Insulin Human Lispro (Humalog) 0 units SC .MILD SLIDING SCALE PRN PRN Reason: Mild Correctional Scale Last Admin: 05/17/18 17:08 Dose: 4 unit Meperidine HCl (Pacu-Demerol) 12.5 mg SLOW IVP ONE PRN PRN Reason: Shivering Stop: 05/19/18 14:09 Miscellaneous Medication (Pharmacy To Dose) 1 each IVPB PRN PRN PRN Reason: Pharmacy to dose Ondansetron HCl (Zofran) 4 mg IVP Q6H PRN PRN Reason: Nausea/Vomiting Promethazine HCl (Pacu-Phenergan) 6.25 mg SLOW IVP ONE PRN PRN Reason: Nausea/Vomiting Stop: 05/19/18 14:09 Promethazine HCl (Pacu-Phenergan) 6.25 mg IM ONE PRN PRN Reason: Nausea/Vomiting Stop: 05/19/18 14:09 Simvastatin (Zocor) 10 mg PO HS [facility] Last Admin: 05/18/18 20:45 Dose: 10 mg Sodium Chloride (Flush - Normal Saline) 10 ml IVF Q12HR [facility] Last Admin: 05/19/18 08:59 Dose: Not Given Sodium Chloride (Flush - Normal Saline) 10 ml IVF PRN PRN PRN Reason: Saline Flush
[2018-05-19] MEDS ORDERED: traMADol HCl 50 MG TAB PO PRN (13:13)
[2018-05-19] MEDS ORDERED: Ondansetron HCl/PF 4 MG/2 ML Vial ONE (15:13)
[2018-05-19] MEDS ORDERED: Lidocaine 1% PF 5 ML VIAL ONE (15:13)
[2018-05-19] MEDS ORDERED: PHENYLEPHRINE-NS 100 MCG/ML 10 ML SYRINGE ONE (15:13)
[2018-05-19] MEDS ORDERED: Metoclopramide HCl 10 MG/2 ML VIAL ONE (15:13)
[2018-05-19] MEDS ORDERED: PROPOFOL 200 MG/20 ML VIAL ONE (15:13)
[2018-05-19] MEDS: cefTRIAXone\\ROCEPHIN 1 GM in Sodium Chloride 0.9% 100 ML IVPB SCH (18:35)
[2018-05-19] MEDS: Simvastatin 5 MG TAB PO SCH (20:53)
[2018-05-19] MEDS: HYDROcodone/Acetaminophen 5/325 mg Tablet PO PRN (20:56)
[2018-05-19] MEDS: Insulin NPH/Reg Insulin Hm 300 UNITS/3 ML VIAL SC SCH (22:14)
[2018-05-19] MEDS: HumaLOG 300 UNITS/3 ML VIAL SC PRN (22:15)
[2018-05-20 05:02] LABS: Anion Gap 13 mmol/L (10-20); BUN (Urea Nitrogen) 16 mg/dL (9.8-20.1); Calc. Creatinine Clearance 65 mL/min (70-130); Calcium 8.6 mg/dL (7.8-10.44); Carbon Dioxide 24 mmol/L (22-29); Chloride 101 mmol/L (98-107); Estimated GFR-MDRD 42; Glucose 234 mg/dL (70-105); Potassium 4.2 mmol/L (3.5-5.1); Sodium 134 mmol/L (136-145)
[2018-05-20 05:06] LABS: #Eosinphils 0.3 thou/uL (0.0-0.7); #Lymphocytes 2.2 thou/uL (1.20-3.40); #Monocytes 0.5 thou/uL (0.11-0.59); #Neutrophils 4.8 thou/uL (1.40-6.50); %Basophils 0.6 % (0.0-1.0); %Eosinophils 3.9 % (0.0-10.0); %Lymphocytes 27.9 % (21.0-51.0); %Monocytes 6.5 % (0.0-10.0); %Neutrophils 61.1 % (42.0-75.0); Hemoglobin 8.9 g/dL (12.0-16.0); Mean Corpuscular HGB CONC 33.5 g/dL (32.0-36.0); Mean Corpuscular Hemoglobin 26.8 pg (27.0-31.0); Mean Platelet Volume 6.9 fL (7.4-10.4); Platelet Count 396 thou/uL (130-400); RBC Distribution Width 11.9 % (11.5-14.5); Red Blood Cell (RBC) Count 3.32 mill/uL (4.20-5.40); White Blood Cell (WBC) Count 7.8 thou/uL (4.8-10.8)
[2018-05-20] MEDS: Hydrochlorothiazide 25 MG TAB PO SCH (08:25)
[2018-05-20] MEDS: HYDROcodone/Acetaminophen 5/325 mg Tablet PO PRN ×2 (08:26→17:07)
[2018-05-20] MEDS: Aspirin 81 mg Enteric Coated Tablet PO SCH (08:27)
[2018-05-20] MEDS: Heparin 5,000 UNITS/ML VIAL SC SCH ×3 (08:27→20:05)
[2018-05-20] MEDS: Insulin NPH/Reg Insulin Hm 300 UNITS/3 ML VIAL SC SCH ×2 (08:29→20:19)
[2018-05-20 08:44] LABS: Vancomycin, Trough 19.8 ug/mL
[2018-05-20] MEDS: Vancomycin HCl 750 MG in Sodium Chloride 0.9% 250 ML 250 ML IVPB SCH ×2 (10:18→20:02)
--- NOTE | 2018-05-20 12:02 | PDOC.PN ---
- Subjective Encounter Start Date: 05/20/18 Encounter Start Time: 09:45 Subjective: awake, feels better -: no pain, is amb in room to comode and back - Objective MAR Reviewed: Yes Vital Signs & Weight: Vital Signs (12 hours) Temp Pulse Resp BP BP Pulse Ox 05/20/18 08:00 98.3 F 103 H 16 99 05/20/18 07:52 98.3 F 103 H 16 118/75 99 05/20/18 04:44 97.5 F L 90 12 118/75 97 Weight Admit Weight 212 lb 15.465 oz Weight 212 lb 15.465 oz I&O: 05/19/18 05/20/18 05/21/18 06:59 06:59 06:59 Intake Total 1050 650 Balance 1050 650 Result Diagrams: 05/20/18 03:54 05/20/18 03:54 Additional Labs: Accuchecks 05/20/18 05/19/18 05/19/18 05:58 21:47 16:42 POC Glucose 196 H 276 H 160 H Phys Exam - Physical Examination HEENT: PERRLA, moist MMs Neck: no JVD, supple Respiratory: no wheezing, no rales Cardiovascular: RRR, no significant murmur Gastrointestinal: soft, non-tender, positive bowel sounds Musculoskeletal: pulses present, edema present right foot in dressing Neurological: non-focal, moves all 4 limbs Psychiatric: normal affect, A&O x 3 Dx/Plan (1) Foot abscess, right Code(s): L02.611 - CUTANEOUS ABSCESS OF RIGHT FOOT Status: Acute Comment: s/ p debribement and amp of toe (2) DM type 2 (diabetes mellitus, type 2) Status: Chronic 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 Diabetes mellitus complication status: with kidney complications Diabetes mellitus complication detail: with chronic kidney disease Chronic kidney disease stage : stage 3 (moderate) Qualified Code(s): E11.22 - Type 2 diabetes mellitus with diabetic chronic kidney disease; N18.3 - Chronic kidney disease, stage 3 ( moderate); Z79.4 - nursing home (current) use of insulin (3) NATAN (acute kidney injury) Code(s): N17.9 - ACUTE KIDNEY FAILURE, UNSPECIFIED Status: Acute Comment: resolving (4) Anemia Code(s): D64.9 - ANEMIA, UNSPECIFIED Status: Chronic Qualifiers: Anemia type: unspecified type Qualified Code(s): D64.9 - Anemia, unspecified (5) Metabolic acidosis Code(s): E87.2 - ACIDOSIS Status: Resolved (6) Sepsis Code(s): A41.9 - SEPSIS, UNSPECIFIED ORGANISM Status: Resolved Qualifiers: Sepsis type: sepsis due to unspecified organism Qualified Code(s): A41.9 - Sepsis, unspecified organism Comment: sec to right foot infection - Plan normal wbc and renal function is stable -: needs to ambulate in hallway, dc plan in am if stable -: is on ceftriaxone and vanc, likely will go home on cipro/flagyl -: continue asp, hctz and zocor -: hemostable * . Review of Systems - Medications/Allergies Allergies/Adverse Reactions: Allergies Allergy/AdvReac Type Severity Reaction Status Date / Time black walnut Allergy Verified 12/26/13 15:40 peanut Allergy Verified 12/26/13 15:40 Penicillins Allergy Verified 12/26/13 15:26 shellfish derived Allergy Verified 12/26/13 15:26 Medications: Current Medications Acetaminophen (Tylenol) 650 mg PO Q4H PRN PRN Reason: Headache/Fever or Pain Last Admin: 05/18/18 21:35 Dose: 650 mg Acetaminophen (Tylenol) 650 mg [place] Q4H PRN PRN Reason: Headache/Fever or Pain Hydrocodone Bitart/Acetaminophen ([place] 5/325) 1 tab PO Q4H PRN PRN Reason: Severe Pain (7-10) Last Admin: 05/20/18 08:26 Dose: 1 tab Aspirin (Ecotrin) 81 mg PO DAILY [facility] Last Admin: 05/20/18 08:27 Dose: 81 mg Bisacodyl (Dulcolax) 10 mg PO DAILYPRN PRN PRN Reason: Constipation Dextrose/Water (Dextrose 50%) 25 gm SLOW IVP PRN PRN PRN Reason: Hypoglycemia Last Admin: 05/19/18 05:17 Dose: 25 gm Glucagon (Glucagon) 1 mg IM PRN PRN PRN Reason: Hypoglycemia Guaifenesin (Robitussin Sf) 200 mg PO Q4H PRN PRN Reason: Cough Last Admin: 05/18/18 21:29 Dose: 200 mg Heparin Sodium (Porcine) (Heparin) 5,000 units SC TID [facility] Last Admin: 05/20/18 08:27 Dose: 5,000 units Hydrochlorothiazide (Hydrochlorothiazide) 12.5 mg PO DAILY [facility] Last Admin: 05/20/18 08:25 Dose: 12.5 mg Dextrose/Water (D5w) 1,000 mls @ 0 mls/hr IV .Q0M PRN PRN Reason: Hypoglycemia Ceftriaxone Sodium 1 gm/ (Sodium Chloride) 100 mls @ 200 mls/hr IVPB Q24HR@ 1800 [facility] Last Admin: 05/19/18 18:35 Dose: 100 mls Vancomycin HCl 750 mg/ Sodium (Chloride) 250 mls @ 250 mls/hr IVPB Q12HR [facility] Last Admin: 05/20/18 10:18 Dose: 250 mls Insulin Human Isoph/Insulin Regular (Humulin 70/30) 20 units SC BID [facility] Last Admin: 05/20/18 08:29 Dose: 20 unit Insulin Human Lispro (Humalog) 0 units SC .MILD SLIDING SCALE PRN PRN Reason: Mild Correctional Scale Last Admin: 05/19/18 22:15 Dose: 4 unit Miscellaneous Medication (Pharmacy To Dose) 1 each IVPB PRN PRN PRN Reason: Pharmacy to dose Ondansetron HCl (Zofran) 4 mg IVP Q6H PRN PRN Reason: Nausea/Vomiting Simvastatin (Zocor) 10 mg PO HS [facility] Last Admin: 05/19/18 20:53 Dose: 10 mg Sodium Chloride (Flush - Normal Saline) 10 ml IVF Q12HR [facility] Last Admin: 05/20/18 10:18 Dose: 10 ml Sodium Chloride (Flush - Normal Saline) 10 ml IVF PRN PRN PRN Reason: Saline Flush Tramadol HCl (Ultram) 50 mg PO Q6H PRN PRN Reason: Mild Pain (1-3)
[2018-05-20] MEDS: HumaLOG 300 UNITS/3 ML VIAL SC PRN (13:16)
[2018-05-20] MEDS: cefTRIAXone\\ROCEPHIN 1 GM in Sodium Chloride 0.9% 100 ML IVPB SCH (17:08)
[2018-05-20] MEDS: Simvastatin 5 MG TAB PO SCH (20:03)
[2018-05-20] MEDS ORDERED: Simethicone Chewable 80 MG TAB PO PRN (21:51)
[2018-05-20] MEDS: Mag-Al 1200 mg/1200 mg/30 ML UDCUP PO PRN (23:00)
[2018-05-21] MEDS: HumaLOG 300 UNITS/3 ML VIAL SC PRN ×4 (06:18→20:42)
[2018-05-21 08:22] LABS: Vancomycin, Trough 19.4 ug/mL
[2018-05-21] MEDS: Hydrochlorothiazide 25 MG TAB PO SCH (08:22)
[2018-05-21] MEDS: Aspirin 81 mg Enteric Coated Tablet PO SCH (08:23)
[2018-05-21] MEDS: Heparin 5,000 UNITS/ML VIAL SC SCH ×3 (08:24→20:41)
[2018-05-21] MEDS: Insulin NPH/Reg Insulin Hm 300 UNITS/3 ML VIAL SC SCH ×2 (08:26→20:41)
[2018-05-21] MEDS: Vancomycin HCl 750 MG in Sodium Chloride 0.9% 250 ML 250 ML IVPB SCH ×2 (09:02→20:48)
--- NOTE | 2018-05-21 14:15 | PDOC.PN ---
- Subjective Encounter Start Date: 05/21/18 Encounter Start Time: 13:00 Subjective: is ambulating in hallway per patient -: not much pain in right foot - Objective MAR Reviewed: Yes Vital Signs & Weight: Vital Signs (12 hours) Temp Pulse Resp BP BP Pulse Ox 05/21/18 11:44 97.8 F 97 18 164/95 H 05/21/18 08:19 98.1 F 94 16 95 05/21/18 07:49 98.1 F 94 16 144/84 H 95 05/21/18 03:32 98.2 F 99 20 146/75 H 97 Weight Admit Weight 212 lb 15.465 oz Weight 212 lb 15.465 oz I&O: 05/20/18 05/21/18 05/22/18 06:59 06:59 06:59 Intake Total 650 750 Balance 650 750 Result Diagrams: 05/20/18 03:54 05/20/18 03:54 Additional Labs: Accuchecks 05/21/18 05/21/18 05/20/18 11:43 04:16 20:17 POC Glucose 259 H 361 H 157 H 05/20/18 16:54 POC Glucose 109 Phys Exam - Physical Examination HEENT: PERRLA, moist MMs Neck: no JVD, supple Respiratory: no wheezing, no rales Cardiovascular: RRR, no significant murmur Gastrointestinal: soft, no distention, positive bowel sounds Musculoskeletal: pulses present right foot in dressing Neurological: non-focal, moves all 4 limbs Psychiatric: normal affect, A&O x 3 Dx/Plan (1) Foot abscess, right Code(s): L02.611 - CUTANEOUS ABSCESS OF RIGHT FOOT Status: Acute Comment: s/ p debribement and amp of 4th and 5th toe with 5th toe metatarsal (2) DM type 2 (diabetes mellitus, type 2) Status: Chronic Qualifiers: Diabetes mellitus fci insulin use: with watermelon inspector use Diabetes mellitus complication status: with kidney complications Diabetes mellitus complication detail: with chronic kidney disease Chronic kidney disease stage : stage 3 (moderate) Qualified Code(s): E11.22 - Type 2 diabetes mellitus with diabetic chronic kidney disease; N18.3 - Chronic kidney disease, stage 3 ( moderate); Z79.4 - long term care pharmacist (current) use of insulin (3) NATAN (acute kidney injury) Code(s): N17.9 - ACUTE KIDNEY FAILURE, UNSPECIFIED Status: Acute Comment: resolving (4) Anemia Code(s): D64.9 - ANEMIA, UNSPECIFIED Status: Chronic Comment: chronic plus ac blood loss anemia on top of it (5) Metabolic acidosis Code(s): E87.2 - ACIDOSIS Status: Resolved (6) Sepsis Code(s): A41.9 - SEPSIS, UNSPECIFIED ORGANISM Status: Resolved Qualifiers: Sepsis type: sepsis due to unspecified organism Qualified Code(s): A41.9 - Sepsis, unspecified organism Comment: sec to right foot infection - Plan cipro, flagyl for dc plan -: CM working with wound care reg vac, has risks of losing her limb -: prior h/o noncompliance with vac -: is currently on vanc and ceftriaxone, 70/30 insulin, hctz and asp -: oral iron for anemia * . Review of Systems - Medications/Allergies Allergies/Adverse Reactions: Allergies Allergy/AdvReac Type Severity Reaction Status Date / Time black walnut Allergy Verified 12/26/13 15:40 peanut Allergy Verified 12/26/13 15:40 Penicillins Allergy Verified 12/26/13 15:26 shellfish derived Allergy Verified 12/26/13 15:26 Medications: Current Medications Acetaminophen (Tylenol) 650 mg PO Q4H PRN PRN Reason: Headache/Fever or Pain Last Admin: 05/18/18 21:35 Dose: 650 mg Acetaminophen (Tylenol) 650 mg [place] Q4H PRN PRN Reason: Headache/Fever or Pain Hydrocodone Bitart/Acetaminophen (Thomas 5/325) 1 tab PO Q4H PRN PRN Reason: Severe Pain (7-10) Last Admin: 05/20/18 17:07 Dose: 1 tab Al Hydroxide/Mg Hydroxide (Maalox) 30 ml PO Q6H PRN PRN Reason: Heartburn or Indigestion Last Admin: 05/20/18 23:00 Dose: 30 ml Aspirin (Ecotrin) 81 mg PO DAILY [facility] Last Admin: 05/21/18 08:23 Dose: 81 mg Bisacodyl (Dulcolax) 10 mg PO DAILYPRN PRN PRN Reason: Constipation Dextrose/Water (Dextrose 50%) 25 gm SLOW IVP PRN PRN PRN Reason: Hypoglycemia Last Admin: 05/19/18 05:17 Dose: 25 gm Glucagon (Glucagon) 1 mg IM PRN PRN PRN Reason: Hypoglycemia Guaifenesin (Robitussin Sf) 200 mg PO Q4H PRN PRN Reason: Cough Last Admin: 05/18/18 21:29 Dose: 200 mg Heparin Sodium (Porcine) (Heparin) 5,000 units SC TID [facility] Last Admin: 05/21/18 08:24 Dose: 5,000 units Hydrochlorothiazide (Hydrochlorothiazide) 12.5 mg PO DAILY [facility] Last Admin: 05/21/18 08:22 Dose: 12.5 mg Dextrose/Water (D5w) 1,000 mls @ 0 mls/hr IV .Q0M PRN PRN Reason: Hypoglycemia Ceftriaxone Sodium 1 gm/ (Sodium Chloride) 100 mls @ 200 mls/hr IVPB Q24HR@ 1800 [facility] Last Admin: 05/20/18 17:08 Dose: 100 mls Vancomycin HCl 750 mg/ Sodium (Chloride) 250 mls @ 250 mls/hr IVPB Q12HR [facility] Last Admin: 05/21/18 09:02 Dose: 250 mls Insulin Human Isoph/Insulin Regular (Humulin 70/30) 20 units SC BID [facility] Last Admin: 05/21/18 08:26 Dose: 20 unit Insulin Human Lispro (Humalog) 0 units SC .MILD SLIDING SCALE PRN PRN Reason: Mild Correctional Scale Last Admin: 05/21/18 12:15 Dose: 4 unit Miscellaneous Medication (Pharmacy To Dose) 1 each IVPB PRN PRN PRN Reason: Pharmacy to dose Ondansetron HCl (Zofran) 4 mg IVP Q6H PRN PRN Reason: Nausea/Vomiting Simethicone (Mylicon Chewable) 80 mg PO Q6H PRN PRN Reason: GAS/INDIGESTION Simvastatin (Zocor) 10 mg PO HS [facility] Last Admin: 05/20/18 20:03 Dose: 10 mg Sodium Chloride (Flush - Normal Saline) 10 ml IVF Q12HR [facility] Last Admin: 05/21/18 08:24 Dose: 10 ml Sodium Chloride (Flush - Normal Saline) 10 ml IVF PRN PRN PRN Reason: Saline Flush Tramadol HCl (Ultram) 50 mg PO Q6H PRN PRN Reason: Mild Pain (1-3)
--- NOTE | 2018-05-21 16:54 | EKG ---
Test Reason : Blood Pressure : / mmHG Vent. Rate : 101 BPM Atrial Rate : 101 BPM P-R Int : 190 ms QRS Dur : 090 ms QT Int : 356 ms P-R-T Axes : 035 143 015 degrees QTc Int : 461 ms Sinus tachycardia Right axis deviation Anteroseptal infarct (cited on or before 26-DEC-2013) Abnormal ECG When compared with ECG of 29-DEC-2013 14:00, No significant change was found Confirmed by DR. Darryl CARDENAS ([id number]) on 05/21/2018 4:54:40 PM Referred By: MALLY Confirmed By:DR. Darryl CARDENAS
[2018-05-21] MEDS: cefTRIAXone\\ROCEPHIN 1 GM in Sodium Chloride 0.9% 100 ML IVPB SCH (17:19)
[2018-05-21] MEDS: HYDROcodone/Acetaminophen 5/325 mg Tablet PO PRN (17:25)
[2018-05-21] MEDS: Simvastatin 5 MG TAB PO SCH (20:41)
[2018-05-22] MEDS: HumaLOG 300 UNITS/3 ML VIAL SC PRN ×4 (05:36→21:13)
[2018-05-22] MEDS: Hydrochlorothiazide 25 MG TAB PO SCH (08:53)
[2018-05-22] MEDS: Aspirin 81 mg Enteric Coated Tablet PO SCH (08:53)
[2018-05-22] MEDS: Heparin 5,000 UNITS/ML VIAL SC SCH ×3 (08:54→20:15)
[2018-05-22] MEDS: Insulin NPH/Reg Insulin Hm 300 UNITS/3 ML VIAL SC SCH ×2 (09:01→22:24)
[2018-05-22] MEDS: Vancomycin HCl 750 MG in Sodium Chloride 0.9% 250 ML 250 ML IVPB SCH ×2 (09:16→20:13)
--- NOTE | 2018-05-22 15:38 | PDOC.PN ---
- Subjective Encounter Start Date: 05/22/18 Encounter Start Time: 13:00 Subjective: says has never used wound vac in the past -: no sob, has ambulated with PT - Objective MAR Reviewed: Yes Vital Signs & Weight: Vital Signs (12 hours) Temp Pulse Resp BP BP Pulse Ox 05/22/18 08:13 97.5 F L 105 H 16 95 05/22/18 08:00 97.5 F L 105 H 16 164/83 H 95 05/22/18 05:24 97.5 F L 99 18 154/88 H 95 Weight Admit Weight 212 lb 15.465 oz Weight 212 lb 15.465 oz I&O: 05/21/18 05/22/18 05/23/18 06:59 06:59 06:59 Intake Total 750 1600 Balance 750 1600 Result Diagrams: 05/20/18 03:54 05/20/18 03:54 Additional Labs: Accuchecks 05/22/18 05/22/18 05/22/18 11:24 05:21 01:18 POC Glucose 250 H 334 H 278 H 05/21/18 05/21/18 05/21/18 21:53 20:29 16:37 POC Glucose 194 H 213 H 188 H Phys Exam - Physical Examination HEENT: PERRLA, moist MMs Neck: no JVD, supple Respiratory: no wheezing, no rales Cardiovascular: RRR, no significant murmur Gastrointestinal: soft, non-tender, positive bowel sounds Musculoskeletal: pulses present, edema present right foot in dressing Neurological: non-focal, moves all 4 limbs Psychiatric: normal affect, A&O x 3 Dx/Plan (1) Foot abscess, right Code(s): L02.611 - CUTANEOUS ABSCESS OF RIGHT FOOT Status: Acute Comment: s/ p debribement and amp of 4th and 5th toe with 5th toe metatarsal (2) DM type 2 (diabetes mellitus, type 2) Status: Chronic Qualifiers: Diabetes mellitus senior living insulin use: with termination clerk use Diabetes mellitus complication status: with kidney complications Diabetes mellitus complication detail: with chronic kidney disease Chronic kidney disease stage : stage 3 (moderate) Qualified Code(s): E11.22 - Type 2 diabetes mellitus with diabetic chronic kidney disease; N18.3 - Chronic kidney disease, stage 3 ( moderate); Z79.4 - terminal gauger supervisor (current) use of insulin (3) NATAN (acute kidney injury) Code(s): N17.9 - ACUTE KIDNEY FAILURE, UNSPECIFIED Status: Acute Comment: resolving (4) Anemia Code(s): D64.9 - ANEMIA, UNSPECIFIED Status: Chronic Comment: chronic plus ac blood loss anemia on top of it (5) Metabolic acidosis Code(s): E87.2 - ACIDOSIS Status: Resolved (6) Sepsis Code(s): A41.9 - SEPSIS, UNSPECIFIED ORGANISM Status: Resolved Qualifiers: Sepsis type: sepsis due to unspecified organism Qualified Code(s): A41.9 - Sepsis, unspecified organism Comment: sec to right foot infection - Plan suggest wound vac to save the limb if feasible -: is on vanc and ceftriaxone -: renal function is holding -: dm is a bit uncontrolled -: d/w CM reg wound vac/current therapy for wound * . Review of Systems - Medications/Allergies Allergies/Adverse Reactions: Allergies Allergy/AdvReac Type Severity Reaction Status Date / Time black walnut Allergy Verified 12/26/13 15:40 peanut Allergy Verified 12/26/13 15:40 Penicillins Allergy Verified 12/26/13 15:26 shellfish derived Allergy Verified 12/26/13 15:26 Medications: Current Medications Acetaminophen (Tylenol) 650 mg PO Q4H PRN PRN Reason: Headache/Fever or Pain Last Admin: 05/18/18 21:35 Dose: 650 mg Acetaminophen (Tylenol) 650 mg [place] Q4H PRN PRN Reason: Headache/Fever or Pain Hydrocodone Bitart/Acetaminophen ([place] 5/325) 1 tab PO Q4H PRN PRN Reason: Severe Pain (7-10) Last Admin: 05/21/18 17:25 Dose: 1 tab Al Hydroxide/Mg Hydroxide (Maalox) 30 ml PO Q6H PRN PRN Reason: Heartburn or Indigestion Last Admin: 05/20/18 23:00 Dose: 30 ml Aspirin (Ecotrin) 81 mg PO DAILY [facility] Last Admin: 05/22/18 08:53 Dose: 81 mg Bisacodyl (Dulcolax) 10 mg PO DAILYPRN PRN PRN Reason: Constipation Dextrose/Water (Dextrose 50%) 25 gm SLOW IVP PRN PRN PRN Reason: Hypoglycemia Last Admin: 05/19/18 05:17 Dose: 25 gm Glucagon (Glucagon) 1 mg IM PRN PRN PRN Reason: Hypoglycemia Guaifenesin (Robitussin Sf) 200 mg PO Q4H PRN PRN Reason: Cough Last Admin: 05/18/18 21:29 Dose: 200 mg Heparin Sodium (Porcine) (Heparin) 5,000 units SC TID [facility] Last Admin: 05/22/18 15:01 Dose: 5,000 units Hydrochlorothiazide (Hydrochlorothiazide) 12.5 mg PO DAILY [facility] Last Admin: 05/22/18 08:53 Dose: 12.5 mg Dextrose/Water (D5w) 1,000 mls @ 0 mls/hr IV .Q0M PRN PRN Reason: Hypoglycemia Ceftriaxone Sodium 1 gm/ (Sodium Chloride) 100 mls @ 200 mls/hr IVPB Q24HR@ 1800 [facility] Last Admin: 05/21/18 17:19 Dose: 100 mls Vancomycin HCl 750 mg/ Sodium (Chloride) 250 mls @ 250 mls/hr IVPB Q12HR [facility] Last Admin: 05/22/18 09:16 Dose: 250 mls Insulin Human Isoph/Insulin Regular (Humulin 70/30) 20 units SC BID [facility] Last Admin: 05/22/18 09:01 Dose: 20 unit Insulin Human Lispro (Humalog) 0 units SC .MILD SLIDING SCALE PRN PRN Reason: Mild Correctional Scale Last Admin: 05/22/18 13:19 Dose: 3 unit Miscellaneous Medication (Pharmacy To Dose) 1 each IVPB PRN PRN PRN Reason: Pharmacy to dose Ondansetron HCl (Zofran) 4 mg IVP Q6H PRN PRN Reason: Nausea/Vomiting Simethicone (Mylicon Chewable) 80 mg PO Q6H PRN PRN Reason: GAS/INDIGESTION Simvastatin (Zocor) 10 mg PO HS [facility] Last Admin: 05/21/18 20:41 Dose: 10 mg Sodium Chloride (Flush - Normal Saline) 10 ml IVF Q12HR [facility] Last Admin: 05/22/18 09:16 Dose: 10 ml Sodium Chloride (Flush - Normal Saline) 10 ml IVF PRN PRN PRN Reason: Saline Flush Last Admin: 05/21/18 17:20 Dose: 10 ml Tramadol HCl (Ultram) 50 mg PO Q6H PRN PRN Reason: Mild Pain (1-3)
[2018-05-22] MEDS: cefTRIAXone\\ROCEPHIN 1 GM in Sodium Chloride 0.9% 100 ML IVPB SCH (17:19)
[2018-05-22] MEDS: HYDROcodone/Acetaminophen 5/325 mg Tablet PO PRN (20:12)
[2018-05-22] MEDS: Simvastatin 5 MG TAB PO SCH (20:13)
[2018-05-22] MEDS: Mag-Al 1200 mg/1200 mg/30 ML UDCUP PO PRN (22:24)
[2018-05-23] MEDS: Diabetic Tussin 200 MG/10 ML UDCUP PO PRN ×2 (05:20→10:36)
[2018-05-23] MEDS: HumaLOG 300 UNITS/3 ML VIAL SC PRN ×2 (05:21→17:18)
[2018-05-23 08:16] LABS: Vancomycin, Trough 20.8 ug/mL
[2018-05-23] MEDS: Aspirin 81 mg Enteric Coated Tablet PO SCH (09:00)
[2018-05-23] MEDS: Insulin NPH/Reg Insulin Hm 300 UNITS/3 ML VIAL SC SCH ×2 (09:00→12:27)
[2018-05-23] MEDS: Hydrochlorothiazide 25 MG TAB PO SCH (09:00)
[2018-05-23] MEDS: Heparin 5,000 UNITS/ML VIAL SC SCH ×3 (09:00→20:16)
[2018-05-23] MEDS: Vancomycin HCl 750 MG in Sodium Chloride 0.9% 250 ML 250 ML IVPB SCH ×2 (09:01→20:17)
[2018-05-23] MEDS: HYDROcodone/Acetaminophen 5/325 mg Tablet PO PRN (15:37)
--- NOTE | 2018-05-23 19:03 | PDOC.PN ---
- Subjective Encounter Start Date: 05/23/18 Encounter Start Time: 14:20 Subjective: no sob, is feeling better -: is amb in hallway - Objective MAR Reviewed: Yes Vital Signs & Weight: Vital Signs (12 hours) Temp Pulse Resp BP BP BP Pulse Ox 05/23/18 16:00 97.7 F 92 18 158/88 H 97 05/23/18 12:00 97.9 F 88 18 140/80 97 05/23/18 07:17 97.7 F 97 16 149/84 H 99 Weight Admit Weight 212 lb 15.465 oz Weight 212 lb 15.465 oz I&O: 05/22/18 05/23/18 05/24/18 06:59 06:59 06:59 Intake Total 2650 2650 Output Total 1500 Balance 2650 1150 Result Diagrams: 05/20/18 03:54 05/20/18 03:54 Additional Labs: Accuchecks 05/23/18 05/23/18 05/23/18 16:55 11:52 04:39 POC Glucose 240 H 271 H 250 H 05/22/18 20:33 POC Glucose 258 H Phys Exam - Physical Examination HEENT: PERRLA, moist MMs Neck: no JVD, supple Respiratory: no wheezing, no rales Cardiovascular: RRR, no significant murmur Gastrointestinal: soft, non-tender, positive bowel sounds Musculoskeletal: pulses present, edema present right foot in dressing Neurological: non-focal, moves all 4 limbs Psychiatric: normal affect, A&O x 3 Dx/Plan (1) Foot abscess, right Code(s): L02.611 - CUTANEOUS ABSCESS OF RIGHT FOOT Status: Acute Comment: s/ p debribement and amp of 4th and 5th toe with 5th toe metatarsal (2) DM type 2 (diabetes mellitus, type 2) Status: Chronic Qualifiers: Diabetes mellitus manager intermediate insulin use: with assisted use Diabetes mellitus complication status: with kidney complications Diabetes mellitus complication detail: with chronic kidney disease Chronic kidney disease stage : stage 3 (moderate) Qualified Code(s): E11.22 - Type 2 diabetes mellitus with diabetic chronic kidney disease; N18.3 - Chronic kidney disease, stage 3 ( moderate); Z79.4 - group home (current) use of insulin (3) NATAN (acute kidney injury) Code(s): N17.9 - ACUTE KIDNEY FAILURE, UNSPECIFIED Status: Acute Comment: resolving (4) Anemia Code(s): D64.9 - ANEMIA, UNSPECIFIED Status: Chronic Comment: chronic plus ac blood loss anemia on top of it (5) Metabolic acidosis Code(s): E87.2 - ACIDOSIS Status: Resolved (6) Sepsis Code(s): A41.9 - SEPSIS, UNSPECIFIED ORGANISM Status: Resolved Qualifiers: Sepsis type: sepsis due to unspecified organism Qualified Code(s): A41.9 - Sepsis, unspecified organism Comment: sec to right foot infection - Plan awaiting wound care opinion for dc plan -: to go home on either medihoney or wound vac, d/w CM -: will switch to oral antibiotics on discharge -: on asp, hctz, zocor, 70/30 insulin -: Her pharmacy is [facility] * . Review of Systems - Medications/Allergies Allergies/Adverse Reactions: Allergies Allergy/AdvReac Type Severity Reaction Status Date / Time black walnut Allergy Verified 12/26/13 15:40 peanut Allergy Verified 12/26/13 15:40 Penicillins Allergy Verified 12/26/13 15:26 shellfish derived Allergy Verified 12/26/13 15:26 Medications: Current Medications Acetaminophen (Tylenol) 650 mg PO Q4H PRN PRN Reason: Headache/Fever or Pain Last Admin: 05/18/18 21:35 Dose: 650 mg Acetaminophen (Tylenol) 650 mg ND Q4H PRN PRN Reason: Headache/Fever or Pain Hydrocodone Bitart/Acetaminophen ([place] 5/325) 1 tab PO Q4H PRN PRN Reason: Severe Pain (7-10) Last Admin: 05/23/18 15:37 Dose: 1 tab Al Hydroxide/Mg Hydroxide (Maalox) 30 ml PO Q6H PRN PRN Reason: Heartburn or Indigestion Last Admin: 05/22/18 22:24 Dose: 30 ml Aspirin (Ecotrin) 81 mg PO DAILY [facility] Last Admin: 05/23/18 09:00 Dose: 81 mg Bisacodyl (Dulcolax) 10 mg PO DAILYPRN PRN PRN Reason: Constipation Dextrose/Water (Dextrose 50%) 25 gm SLOW IVP PRN PRN PRN Reason: Hypoglycemia Last Admin: 05/19/18 05:17 Dose: 25 gm Glucagon (Glucagon) 1 mg IM PRN PRN PRN Reason: Hypoglycemia Guaifenesin (Robitussin Sf) 200 mg PO Q4H PRN PRN Reason: Cough Last Admin: 05/23/18 10:36 Dose: 200 mg Heparin Sodium (Porcine) (Heparin) 5,000 units SC TID [facility] Last Admin: 05/23/18 15:37 Dose: 5,000 units Hydrochlorothiazide (Hydrochlorothiazide) 12.5 mg PO DAILY [facility] Last Admin: 05/23/18 09:00 Dose: 12.5 mg Dextrose/Water (D5w) 1,000 mls @ 0 mls/hr IV .Q0M PRN PRN Reason: Hypoglycemia Vancomycin HCl 750 mg/ Sodium (Chloride) 250 mls @ 250 mls/hr IVPB Q12HR [facility] Last Admin: 05/23/18 09:01 Dose: 250 mls Ceftriaxone Sodium 1 gm/ (Sodium Chloride) 100 mls @ 200 mls/hr IVPB 2000 EDELMIRA Insulin Human Isoph/Insulin Regular (Humulin 70/30) 20 units SC BID [facility] Last Admin: 05/23/18 12:27 Dose: 4 unit Insulin Human Lispro (Humalog) 0 units SC .MILD SLIDING SCALE PRN PRN Reason: Mild Correctional Scale Last Admin: 05/23/18 17:18 Dose: 3 unit Miscellaneous Medication (Pharmacy To Dose) 1 each IVPB PRN PRN PRN Reason: Pharmacy to dose Ondansetron HCl (Zofran) 4 mg IVP Q6H PRN PRN Reason: Nausea/Vomiting Simethicone (Mylicon Chewable) 80 mg PO Q6H PRN PRN Reason: GAS/INDIGESTION Simvastatin (Zocor) 10 mg PO HS [facility] Last Admin: 05/22/18 20:13 Dose: 10 mg Sodium Chloride (Flush - Normal Saline) 10 ml IVF Q12HR [facility] Last Admin: 05/23/18 09:01 Dose: 10 ml Sodium Chloride (Flush - Normal Saline) 10 ml IVF PRN PRN PRN Reason: Saline Flush Last Admin: 05/21/18 17:20 Dose: 10 ml Tramadol HCl (Ultram) 50 mg PO Q6H PRN PRN Reason: Mild Pain (1-3)
[2018-05-23] MEDS: cefTRIAXone\\ROCEPHIN 1 GM in Sodium Chloride 0.9% 100 ML IVPB SCH (19:19)
[2018-05-23] MEDS ORDERED: cefTRIAXone\\ROCEPHIN 1 GM in Sodium Chloride 0.9% 100 ML IVPB SCH (20:00)
[2018-05-23] MEDS: Simvastatin 5 MG TAB PO SCH (20:16)
[2018-05-24] MEDS: HumaLOG 300 UNITS/3 ML VIAL SC PRN ×2 (05:32→11:51)
[2018-05-24] MEDS ORDERED: cefTRIAXone\\ROCEPHIN 1 GM in Sodium Chloride 0.9% 100 ML IVPB SCH (06:00)
[2018-05-24] MEDS: Aspirin 81 mg Enteric Coated Tablet PO SCH (08:14)
[2018-05-24] MEDS: Heparin 5,000 UNITS/ML VIAL SC SCH ×3 (08:14→20:27)
[2018-05-24] MEDS: Insulin NPH/Reg Insulin Hm 300 UNITS/3 ML VIAL SC SCH ×2 (08:15→20:27)
[2018-05-24] MEDS: Hydrochlorothiazide 25 MG TAB PO SCH (09:04)
--- NOTE | 2018-05-24 11:09 | PDOC.PN ---
- Subjective Encounter Start Date: 05/24/18 Encounter Start Time: 11:00 Subjective: no sob or pain -: feels better -: has wound vac on her foot - Objective MAR Reviewed: Yes Vital Signs & Weight: Vital Signs (12 hours) Temp Pulse Resp BP BP Pulse Ox 05/24/18 08:00 98.2 F 90 18 145/84 H 96 05/24/18 00:00 97.9 F 96 18 146/94 H 96 Weight Admit Weight 212 lb 15.465 oz Weight 212 lb 15.465 oz I&O: 05/23/18 05/24/18 05/25/18 06:59 06:59 06:59 Intake Total 2650 820 Output Total 1500 Balance 1150 820 Result Diagrams: 05/20/18 03:54 05/20/18 03:54 Additional Labs: Accuchecks 05/24/18 05/23/18 05/23/18 04:54 20:14 16:55 POC Glucose 197 H 237 H 240 H 05/23/18 11:52 POC Glucose 271 H Phys Exam - Physical Examination HEENT: PERRLA, moist MMs Neck: no JVD, supple Respiratory: no wheezing, no rales Cardiovascular: RRR, no significant murmur Gastrointestinal: soft, non-tender, positive bowel sounds Musculoskeletal: pulses present, edema present right foot in wound vac Neurological: non-focal, moves all 4 limbs Psychiatric: normal affect, A&O x 3 Dx/Plan (1) Foot abscess, right Code(s): L02.611 - CUTANEOUS ABSCESS OF RIGHT FOOT Status: Acute Comment: s/ p debribement and amp of 4th and 5th toe with 5th toe metatarsal (2) DM type 2 (diabetes mellitus, type 2) Status: Chronic Qualifiers: Diabetes mellitus truck terminal manager insulin use: with half-way use Diabetes mellitus complication status: with kidney complications Diabetes mellitus complication detail: with chronic kidney disease Chronic kidney disease stage : stage 3 (moderate) Qualified Code(s): E11.22 - Type 2 diabetes mellitus with diabetic chronic kidney disease; N18.3 - Chronic kidney disease, stage 3 ( moderate); Z79.4 - half-way (current) use of insulin (3) NATAN (acute kidney injury) Code(s): N17.9 - ACUTE KIDNEY FAILURE, UNSPECIFIED Status: Acute Comment: resolving (4) Anemia Code(s): D64.9 - ANEMIA, UNSPECIFIED Status: Chronic Comment: chronic plus ac blood loss anemia on top of it (5) Metabolic acidosis Code(s): E87.2 - ACIDOSIS Status: Resolved (6) Sepsis Code(s): A41.9 - SEPSIS, UNSPECIFIED ORGANISM Status: Resolved Qualifiers: Sepsis type: sepsis due to unspecified organism Qualified Code(s): A41.9 - Sepsis, unspecified organism Comment: sec to right foot infection - Plan on oral levaquin, dc iv antibiotics -: continue 70/30 bid, asp, hctz and zocor -: dc plan home when outpt wound vac is arranged and f/u are set up -: to ambulate as tolerated * . Review of Systems - Medications/Allergies Allergies/Adverse Reactions: Allergies Allergy/AdvReac Type Severity Reaction Status Date / Time black walnut Allergy Verified 12/26/13 15:40 peanut Allergy Verified 12/26/13 15:40 Penicillins Allergy Verified 12/26/13 15:26 shellfish derived Allergy Verified 12/26/13 15:26 Medications: Current Medications Acetaminophen (Tylenol) 650 mg PO Q4H PRN PRN Reason: Headache/Fever or Pain Last Admin: 05/18/18 21:35 Dose: 650 mg Acetaminophen (Tylenol) 650 mg TN Q4H PRN PRN Reason: Headache/Fever or Pain Hydrocodone Bitart/Acetaminophen ([place] 5/325) 1 tab PO Q4H PRN PRN Reason: Severe Pain (7-10) Last Admin: 05/23/18 15:37 Dose: 1 tab Al Hydroxide/Mg Hydroxide (Maalox) 30 ml PO Q6H PRN PRN Reason: Heartburn or Indigestion Last Admin: 05/22/18 22:24 Dose: 30 ml Aspirin (Ecotrin) 81 mg PO DAILY [facility] Last Admin: 05/24/18 08:14 Dose: 81 mg Bisacodyl (Dulcolax) 10 mg PO DAILYPRN PRN PRN Reason: Constipation Dextrose/Water (Dextrose 50%) 25 gm SLOW IVP PRN PRN PRN Reason: Hypoglycemia Last Admin: 05/19/18 05:17 Dose: 25 gm Glucagon (Glucagon) 1 mg IM PRN PRN PRN Reason: Hypoglycemia Guaifenesin (Robitussin Sf) 200 mg PO Q4H PRN PRN Reason: Cough Last Admin: 05/23/18 10:36 Dose: 200 mg Heparin Sodium (Porcine) (Heparin) 5,000 units SC TID [facility] Last Admin: 05/24/18 08:14 Dose: 5,000 units Hydrochlorothiazide (Hydrochlorothiazide) 12.5 mg PO DAILY [facility] Last Admin: 05/24/18 09:04 Dose: 12.5 mg Dextrose/Water (D5w) 1,000 mls @ 0 mls/hr IV .Q0M PRN PRN Reason: Hypoglycemia Insulin Human Isoph/Insulin Regular (Humulin 70/30) 30 units SC BID [facility] Last Admin: 05/24/18 08:15 Dose: 30 unit Insulin Human Lispro (Humalog) 0 units SC .MILD SLIDING SCALE PRN PRN Reason: Mild Correctional Scale Last Admin: 05/24/18 05:32 Dose: 2 unit Levofloxacin (Levaquin) 500 mg PO 0600 [facility] Miscellaneous Medication (Pharmacy To Dose) 1 each IVPB PRN PRN PRN Reason: Pharmacy to dose Ondansetron HCl (Zofran) 4 mg IVP Q6H PRN PRN Reason: Nausea/Vomiting Simethicone (Mylicon Chewable) 80 mg PO Q6H PRN PRN Reason: GAS/INDIGESTION Simvastatin (Zocor) 10 mg PO HS [facility] Last Admin: 05/23/18 20:16 Dose: 10 mg Sodium Chloride (Flush - Normal Saline) 10 ml IVF Q12HR [facility] Last Admin: 05/24/18 08:16 Dose: 10 ml Sodium Chloride (Flush - Normal Saline) 10 ml IVF PRN PRN PRN Reason: Saline Flush Last Admin: 05/21/18 17:20 Dose: 10 ml Tramadol HCl (Ultram) 50 mg PO Q6H PRN PRN Reason: Mild Pain (1-3)
[2018-05-24] MEDS: Diabetic Tussin 200 MG/10 ML UDCUP PO PRN (11:53)
[2018-05-24] MEDS: Simvastatin 5 MG TAB PO SCH (20:27)
[2018-05-25 07:33] VITALS: BP 125/78; TEMP 97.8
[2018-05-25] MEDS: Aspirin 81 mg Enteric Coated Tablet PO SCH (08:30)
[2018-05-25] MEDS: Hydrochlorothiazide 25 MG TAB PO SCH (08:30)
[2018-05-25] MEDS: Heparin 5,000 UNITS/ML VIAL SC SCH (08:31)
[2018-05-25] MEDS: Diabetic Tussin 200 MG/10 ML UDCUP PO PRN (08:32)
[2018-05-25] MEDS: Insulin NPH/Reg Insulin Hm 300 UNITS/3 ML VIAL SC SCH (08:37)
--- NOTE | 2018-05-25 10:32 | PDOC.PN ---
- Subjective Encounter Start Date: 05/25/18 Encounter Start Time: 10:29 Subjective: R foot in bandage - Objective MAR Reviewed: Yes Vital Signs & Weight: Vital Signs (12 hours) Temp Pulse Resp BP Pulse Ox 05/25/18 07:32 97.8 F 91 18 125/78 94 L Weight Admit Weight 212 lb 15.465 oz Weight 212 lb 15.465 oz I&O: 05/24/18 05/25/18 05/26/18 06:59 06:59 06:59 Intake Total 820 480 Balance 820 480 Result Diagrams: 05/20/18 03:54 05/20/18 03:54 Additional Labs: Accuchecks 05/25/18 05/24/18 05/24/18 04:35 20:27 17:00 POC Glucose 79 311 H 154 H 05/24/18 11:21 POC Glucose 286 H Phys Exam - Physical Examination Neck: no JVD Respiratory: clear to auscultation bilateral Cardiovascular: RRR, no significant murmur Gastrointestinal: soft, positive bowel sounds Musculoskeletal: edema present R foot bandaged Dx/Plan (1) NATAN (acute kidney injury) Code(s): N17.9 - ACUTE KIDNEY FAILURE, UNSPECIFIED Status: Acute Comment: resolving (2) Foot abscess, right Code(s): L02.611 - CUTANEOUS ABSCESS OF RIGHT FOOT Status: Acute Comment: s/ p debribement and amp of 4th and 5th toe with 5th toe metatarsal (3) Anemia Code(s): D64.9 - ANEMIA, UNSPECIFIED Status: Chronic Qualifiers: Anemia type: unspecified type Qualified Code(s): D64.9 - Anemia, unspecified Comment: chronic plus ac blood loss anemia on top of it (4) DM type 2 (diabetes mellitus, type 2) Status: Chronic Qualifiers: Diabetes mellitus nursing home insulin use: with marine oil terminal superintendent use Diabetes mellitus complication status: with kidney complications Diabetes mellitus complication detail: with chronic kidney disease Chronic kidney disease stage : stage 3 (moderate) Qualified Code(s): E11.22 - Type 2 diabetes mellitus with diabetic chronic kidney disease; N18.3 - Chronic kidney disease, stage 3 ( moderate); Z79.4 - termite control servicer (current) use of insulin (5) Sepsis Code(s): A41.9 - SEPSIS, UNSPECIFIED ORGANISM Status: Resolved Qualifiers: Sepsis type: sepsis due to unspecified organism Qualified Code(s): A41.9 - Sepsis, unspecified organism Comment: sec to right foot infection - Plan wound vac -: antibx -: accu/ss/LA insulin * .
--- NOTE | 2018-05-25 14:40 | DIS ---
DATE OF ADMISSION: 05/16/2018 DATE OF DISCHARGE: 05/25/2018 PRIMARY CARE PROVIDER: Rodrigue Poole M.D. DISCHARGE DIAGNOSES: Diabetes mellitus, type 2; acute on chronic kidney failure; anemia, secondary t o chronic kidney disease; nonhealing ulcer on right foot. DISCHARGE MEDICATIONS: Levaquin 500 mg a day for 7 more days, metformin 500 mg a day, Zocor 10 mg a day, hydrochlorothiazide 12.5 mg a day, aspirin 81 mg a day, insulin Novolin 70/30 40 units subcutane ously twice a day. ALLERGIES: PENICILLINS. CODE STATUS: FULL. PENDING AT THE TIME OF DISCHARGE: Nothing. HOSPITAL COURSE: The patient admitted to the [facility] through [facility] with a right foot ulcer. She had been placed on outpatient antibiotics. Problem had star candelario about a month ago. She stepped on glass. She had been put on outpatient antibiotics and seen by appraiser oil and water. She was seen by a appraiser oil and water on the day of admission and sent to the emergency room. S he was admitted with a diabetic foot infection with failed outpatient therapy, started on vancomycin and ceftriaxone. Because her creatinine was elevated above normal, her metformin was held. She was seen by Wound Care, Dr. Call, Cardiovascular Surgery, who thought she had bounding pulses and did not think further vascular evaluation was necessary. She was taken to the operating room by Dr. Romero for debridement. Her initial laboratory, white cell count 13.2, which within 3 days had come d own to normal and remained there. Hemoglobin remained 10 plus or minus 1, platelet count was elevate d during her hospital stay. Her initial creatinine was 2.36 with a BUN of 34 with a mildly decreased sodium 130-132. Her blood sugars were adequately controlled. Her creatinine dropped down to 1.32-1 .56. Grew multiple bacteria with [id number] to quinolones. She has done well on robin olones. She has been treated by wound care. Her discharge was delayed by the need of a wound VAC, w hich has finally been improved after multiple days of waiting. She is being discharged to follow up with wound care on 05/28/2018 and to follow up with PCP in 1 week. She is on a diabetic diet with ac tivity as tolerated. She will need followup basic metabolic profile when seen by PCP.
--- NOTE | 2018-05-28 11:10 | OP ---
DATE OF PROCEDURE: 05/19/2018 PREOPERATIVE DIAGNOSIS: Gangrene, right foot. POSTOPERATIVE DIAGNOSIS: Gangrene, right foot. PROCEDURE: Amputation, right fourth and fifth toes as well as the fifth metatarsal. SURGEON: Ronaldo Romero M.D. ANESTHESIA: General LMA. ESTIMATED BLOOD LOSS: 200 mL. Cultures sent. PROCEDURE IN DETAIL: After prepping and draping the right foot an incision was made around the base of the fourth and fifth toes. There was necrotic tissue and purulent fluid. Incision was extended t o include the fifth metatarsal head which was grossly involved with purulence. After excising this m etatarsal head the wound was irrigated thoroughly and dressings applied with the possibility of a wou nd VAC to be applied the following day. Cultures were sent. The patient tolerated the procedure wel l with good bleeding suggesting adequate vascular supply.
== END 2018-05-25 16:33 | disposition home or self-care (01) | DRG 639 ==
LOC: ERS 15:41 → T4-B 18:32
PROVIDERS: ADMIT Internal Medicine; ATTEND Internal Medicine
DX: E11.621 Type 2 diabetes mellitus with foot ulcer (principal); L97.519 Non-pressure chronic ulcer of other part of right foot with unspecified severity; E66.01 Morbid (severe) obesity due to excess calories; E78.5 Hyperlipidemia, unspecified; Z88.0 Allergy status to penicillin; Z91.040 Latex allergy status; Z79.82 Long term (current) use of aspirin; Z79.4 Long term (current) use of insulin; N17.9 Acute kidney failure, unspecified; I12.9 Hypertensive chronic kidney disease with stage 1 through stage 4 chronic kidney disease, or unspecified chronic kidney disease; E11.22 Type 2 diabetes mellitus with diabetic chronic kidney disease; N18.9 Chronic kidney disease, unspecified; Z79.84 Long term (current) use of oral hypoglycemic drugs; D63.8 Anemia in other chronic diseases classified elsewhere; F17.220 Nicotine dependence, chewing tobacco, uncomplicated
CPT/HCPCS: 36415; 36416; 80048; 80053; 80202; 82010; 82330; 82803; 85025; 87040; 87070; 87076; 87077; 87186; 87205; 93005; 93010; 96365; 96367; A4216; J0131; J0696; J1644; J2001; J2405; J2704; J2765; J3010; J3370; J7050

== ENCOUNTER 2018-05-28 12:30 | Outpatient (CLI) | payer SELFPAY ==
[2018-05-28] MEDS ORDERED: Sodium Chloride 0.9% 15 ML NEB ONE ×2 (15:00)
== END 2018-05-28 12:31 | disposition home or self-care (01) ==
LOC: WCC 12:30
PROVIDERS: ATTEND Podiatrist Foot & Ankle Surgery
DX: T81.89XD Other complications of procedures, not elsewhere classified, subsequent encounter (principal)
CPT/HCPCS: 97605; A4218

== ENCOUNTER 2018-05-30 14:09 | Outpatient (CLI) | payer SELFPAY ==
[2018-05-30] MEDS ORDERED: Sodium Chloride 0.9% 15 ML NEB ONE (16:00)
== END 2018-05-30 14:10 | disposition home or self-care (01) ==
LOC: WCC 14:09
PROVIDERS: ATTEND Podiatrist Foot & Ankle Surgery
DX: T81.89XD Other complications of procedures, not elsewhere classified, subsequent encounter (principal)
CPT/HCPCS: 97605; A4218

== ENCOUNTER 2018-06-01 07:55 | Outpatient (CLI) | payer SELFPAY ==
--- NOTE | 2018-06-01 09:46 | PRG ---
DATE OF SERVICE: 06/01/2018 CHIEF COMPLAINT: Wound to the right forefoot. HISTORY OF PRESENT ILLNESS: This is a 53-year-old female, who presents today with a right foot wound . Her problems began in the middle portion of April when she was walking and stepped on several pie pedro of glass and cut the bottom of her feet. She had been seeing her twine winder and having these musa ated, and they were almost healed. When she developed an infection, she failed oral outpatient antib iotics and was eventually admitted at the beginning of May to the hospital for IV antibiotics a nd she underwent a surgical debridement at that time, requiring the amputation of her fifth toe. She has a previous history of third and fourth toes of this right foot also being amputated previously f or infection. She, after the debridement, was placed on a wound VAC and has been getting 3 times a w [place] wound VAC changes since that time. Denies any pain associated with this wound. Denies nausea, v omiting, fevers, or chills. Past medical history, past surgical history, medications, allergies, social history, and family histo ry were reviewed with the patient and they are documented in her paper wound clinic chart and were de emed accurate by myself. PHYSICAL EXAMINATION: VITAL SIGNS: Temperature 97.6, pulse 92, respirations 12, blood pressure 199/91. Blood sugar was 18 5 this morning. VASCULAR EXAM: Dorsalis pedis and posterior tibial pulses are palpable to the right lower extremity. She has immediate capillary fill time to the distal aspect of toes 1 and 2, and wound base bled wel l on debridement. NEUROLOGICAL: Light touch and protective threshold is absent. DERMATOLOGICAL EXAM: Large surgical wound to the dorsum and lateral aspect of the right foot, measur ing 6.8 cm x 5 cm x 1.7 cm with 75% granulation tissue, 25% slough, and loosened dermis. Moderate se rosanguineous drainage, no purulence, does not probe to tendon or bone. No periwound erythema, edema , or warmth. There are also some plantar ulcerations to the right foot underneath this surgical site . These were the areas of previous glass cuts that measure 1 cm x 0.5 cm x 0.2 cm of depth, 50% gran ulation tissue, 50% epithelium, 100% red in coloration predebridement moderate drainage, no periwound erythema, edema, or warmth. No purulent drainage. ASSESSMENT: 1. Non-pressure chronic ulcerations to the right foot, status post debridement and fifth toe amputat ion. 2. Diabetes with peripheral neuropathy. PLAN: 1. Full-thickness debridement of the subcutaneous tissue layer removing all nonviable tissues and bi ofilm from the wound base down to a bleeding granular wound base. The patient tolerated the procedur e well. 2. Going to continue with wound VAC placement to the right foot, 125 mm of continuous negative press ure. She will continue this 3 times a week and will follow up with me next Monday. We will apply Aq uacel AG to the plantar surface wounds before being draped over from the VAC.
[2018-06-01] MEDS ORDERED: Sodium Chloride 0.9% 15 ML NEB ONE (19:59)
== END 2018-06-01 07:56 | disposition home or self-care (01) ==
LOC: WCC 07:55
PROVIDERS: ATTEND Podiatrist Foot & Ankle Surgery
DX: E11.621 Type 2 diabetes mellitus with foot ulcer (principal); L97.519 Non-pressure chronic ulcer of other part of right foot with unspecified severity; E11.42 Type 2 diabetes mellitus with diabetic polyneuropathy; Z89.421 Acquired absence of other right toe(s)
CPT/HCPCS: 11042; 99203; A4218; G0463

== ENCOUNTER 2018-06-04 08:59 | Outpatient (CLI) | payer SELFPAY ==
[2018-06-04] MEDS ORDERED: Sodium Chloride 0.9% 15 ML NEB ONE (09:00)
== END 2018-06-04 09:00 | disposition home or self-care (01) ==
LOC: WCC 08:59
PROVIDERS: ATTEND Podiatrist Foot & Ankle Surgery
DX: T81.89XD Other complications of procedures, not elsewhere classified, subsequent encounter (principal)
CPT/HCPCS: 97605; A4218

== ENCOUNTER 2018-06-06 09:09 | Outpatient (CLI) | payer SELFPAY ==
[2018-06-06] MEDS ORDERED: Sodium Chloride 0.9% 15 ML NEB ONE (14:30)
== END 2018-06-06 09:10 | disposition home or self-care (01) ==
LOC: WCC 09:09
PROVIDERS: ATTEND Podiatrist Foot & Ankle Surgery
DX: T81.89XD Other complications of procedures, not elsewhere classified, subsequent encounter (principal)
CPT/HCPCS: 97605; A4218

== ENCOUNTER 2018-06-08 08:53 | Outpatient (CLI) | payer SELFPAY ==
[2018-06-08] MEDS ORDERED: Sodium Chloride 0.9% 15 ML NEB ONE (10:17)
--- NOTE | 2018-06-08 10:56 | PRG ---
DATE OF SERVICE: 06/08/2018 SUBJECTIVE: This is a 53-year-old female returns today status post right forefoot amputations with o pen wounds. She has been having wound VAC changes 3 times a week and has had no problems with this s annika last visit. She denies nausea, vomiting, fevers or chills. OBJECTIVE: Right foot wound measures 7.5 cm x 5 cm x 0.5 cm, 100% granular wound base. There is a s mall area which probes to what is presumed to be the third metatarsal head. No periwound erythema, e octavia or warmth. There is no malodor. Moderate serosanguineous drainage, no purulence, plantar wound measuring 0.5 cm x 1.5 cm x 0.1 cm, 100% granulation tissue. No periwound erythema, edema or warmth . Some mild periwound maceration. ASSESSMENT: Non-pressure chronic ulceration status post right forefoot amputations. PLAN: 1. Full thickness debridement of subcutaneous tissue layer removing all nonviable tissue and biofilm from the wound base down to a bleeding granular wound base. 2. We are going to continue with the wound VAC 3 times a week dressing changes, we will use some angela rachael on the plantar wounds underneath the wound VAC draping. 3. Recommend follow up with her surgeon as well. 4. She will follow up with me in 3 weeks.
== END 2018-06-08 08:54 | disposition home or self-care (01) ==
LOC: WCC 08:53
PROVIDERS: ATTEND Podiatrist Foot & Ankle Surgery
DX: T87.9 Unspecified complications of amputation stump (principal); L97.519 Non-pressure chronic ulcer of other part of right foot with unspecified severity
CPT/HCPCS: A4218

== ENCOUNTER 2018-06-11 14:50 | Outpatient (CLI) | payer SELFPAY ==
[~2018-06-11 14:50] MED LIST: Sodium Chloride 0.9% 15 ML NEB ONE
== END 2018-06-11 14:51 | disposition home or self-care (01) ==
LOC: WCC 14:50
PROVIDERS: ATTEND Podiatrist Foot & Ankle Surgery
DX: T81.89XD Other complications of procedures, not elsewhere classified, subsequent encounter (principal)
CPT/HCPCS: 97605; A4218

== ENCOUNTER 2018-06-14 08:56 | Outpatient (CLI) | payer SELFPAY ==
[2018-06-14] MEDS ORDERED: Sodium Chloride 0.9% 15 ML NEB ONE (10:00)
== END 2018-06-14 08:57 | disposition home or self-care (01) ==
LOC: WCC 08:56
PROVIDERS: ATTEND Podiatrist Foot & Ankle Surgery
DX: T81.89XD Other complications of procedures, not elsewhere classified, subsequent encounter (principal)
CPT/HCPCS: 97605; A4218

== ENCOUNTER 2018-06-19 08:50 | Outpatient (CLI) | payer SELFPAY ==
[2018-06-19] MEDS ORDERED: Sodium Chloride 0.9% 15 ML NEB ONE (15:00)
== END 2018-06-19 08:51 | disposition home or self-care (01) ==
LOC: WCC 08:50
PROVIDERS: ATTEND Podiatrist Foot & Ankle Surgery
DX: T81.89XD Other complications of procedures, not elsewhere classified, subsequent encounter (principal)
CPT/HCPCS: 97605; A4218

== ENCOUNTER 2018-06-21 08:47 | Outpatient (CLI) | payer SELFPAY | END 2018-06-21 08:48 | disposition home or self-care (01) | LOC: WCC 08:47 | PROVIDERS: ATTEND Podiatrist Foot & Ankle Surgery | DX: T81.89XD Other complications of procedures, not elsewhere classified, subsequent encounter (principal) | CPT/HCPCS: 97605; A4218 ==

== ENCOUNTER 2018-06-25 08:59 | Outpatient (CLI) | payer SELFPAY | END 2018-06-25 09:00 | disposition home or self-care (01) | LOC: WCC 08:59 | PROVIDERS: ATTEND Podiatrist Foot & Ankle Surgery | DX: T81.89XD Other complications of procedures, not elsewhere classified, subsequent encounter (principal) | CPT/HCPCS: 97605; A4218 ==

== ENCOUNTER 2018-06-27 08:57 | Outpatient (CLI) | payer SELFPAY | END 2018-06-27 08:58 | disposition home or self-care (01) | LOC: WCC 08:57 | PROVIDERS: ATTEND Podiatrist Foot & Ankle Surgery | DX: T81.89XD Other complications of procedures, not elsewhere classified, subsequent encounter (principal) | CPT/HCPCS: 97605; A4218 ==

== ENCOUNTER 2018-06-29 08:56 | Outpatient (CLI) | payer SELFPAY ==
--- NOTE | 2018-06-29 09:40 | PRG ---
DATE OF SERVICE: 06/29/2018 SUBJECTIVE: This is a 53-year-old female returns today for right foot wound, status post right fourt h and fifth toe amputations, has been getting wound VAC changes 3 times a week, has had no problems w ith wound VAC. No acute events since last visit. Denies nausea, vomiting, fevers or chills. PHYSICAL EXAMINATION: Ulceration measures 6 cm x 3.9 cm x 1 cm of depth. There is a small tunneled area, which goes down to the third metatarsal head. A periwound has some hyperkeratotic tissue mostl y dry, some slight maceration on the plantar border of the wound. ASSESSMENT: Non-pressure chronic ulceration to the right foot, status post right fourth and fifth to e amputation. PLAN: 1. Full thickness debridement of subcutaneous tissue removing all nonviable tissue and biofilm from the wound base down to bleeding granular wound base. 2. We are going to continue the wound VAC for a little bit longer and like to try to get some of thi s tunneling to fill in a little bit before we switch dressing to a different dressing changes. 3. The patient will follow up with me in 1 week.
== END 2018-06-29 08:57 | disposition home or self-care (01) ==
LOC: WCC 08:56
PROVIDERS: ATTEND Podiatrist Foot & Ankle Surgery
DX: L97.519 Non-pressure chronic ulcer of other part of right foot with unspecified severity (principal); Z89.421 Acquired absence of other right toe(s)
CPT/HCPCS: 11042

== ENCOUNTER 2018-07-02 09:04 | Outpatient (CLI) | payer SELFPAY ==
[2018-07-02] MEDS ORDERED: Sodium Chloride 0.9% 15 ML NEB ONE (15:47)
== END 2018-07-02 09:05 | disposition home or self-care (01) ==
LOC: WCC 09:04
PROVIDERS: ATTEND Podiatrist Foot & Ankle Surgery
DX: T81.89XD Other complications of procedures, not elsewhere classified, subsequent encounter (principal)
CPT/HCPCS: 97605; A4218

== ENCOUNTER 2018-07-04 08:54 | Outpatient (CLI) | payer SELFPAY ==
[2018-07-04] MEDS ORDERED: Sodium Chloride 0.9% 15 ML NEB ONE (15:52)
== END 2018-07-04 08:55 | disposition home or self-care (01) ==
LOC: WCC 08:54
PROVIDERS: ATTEND Podiatrist Foot & Ankle Surgery
DX: T81.89XD Other complications of procedures, not elsewhere classified, subsequent encounter (principal)
CPT/HCPCS: 97605; A4218

== ENCOUNTER 2018-07-06 09:02 | Outpatient (CLI) | payer SELFPAY ==
--- NOTE | 2018-07-06 10:03 | PRG ---
DATE OF SERVICE: 07/06/2018 SUBJECTIVE: This is a 53-year-old female who returns today for a right foot wound, status post right fourth and fifth toe amputations. She has been getting wound VAC changes 3 times a week. Denies ac kashia events since last visit. PHYSICAL EXAMINATION: Ulceration measures 6 cm x 3.7 cm x 1.26 cm. The majority of the wound is raegan led to the surface, although there is a central portion that has a sinus tract that goes down to the third metatarsal head. The rest of the wound is 100% granular, that sinus tract at some slough withi n it. Bone feels hard at this time, no periwound erythema, edema or warmth. ASSESSMENT: 1. Non-pressure chronic ulceration status post amputation to the right foot. 2. Diabetes with peripheral neuropathy. PLAN: 1. I want to continue with the wound VAC to try to get this sinus tract to fill in. We are going to apply the white foam into the sinus tract and GranuFoam over the rest of it. Have to continue to 12 5 continuous negative pressure because of the pierre wound VAC does not allow us to increase the pre ssure. 2. These dressing changes will be performed 3 times a week. She will follow up with me in 1 week.
[2018-07-07] MEDS ORDERED: Sodium Chloride 0.9% 15 ML NEB ONE (08:43)
== END 2018-07-06 09:03 | disposition home or self-care (01) ==
LOC: WCC 09:02
PROVIDERS: ATTEND Podiatrist Foot & Ankle Surgery
DX: E11.621 Type 2 diabetes mellitus with foot ulcer (principal); L97.519 Non-pressure chronic ulcer of other part of right foot with unspecified severity; E11.42 Type 2 diabetes mellitus with diabetic polyneuropathy; Z89.431 Acquired absence of right foot
CPT/HCPCS: 97605

== ENCOUNTER 2018-07-09 09:08 | Outpatient (CLI) | payer SELFPAY | END 2018-07-09 09:09 | disposition home or self-care (01) | LOC: WCC 09:08 | PROVIDERS: ATTEND Podiatrist Foot & Ankle Surgery | DX: T81.89XD Other complications of procedures, not elsewhere classified, subsequent encounter (principal) | CPT/HCPCS: 97605 ==

== ENCOUNTER 2018-07-11 09:19 | Outpatient (CLI) | payer SELFPAY ==
[2018-07-11] MEDS ORDERED: Sodium Chloride 0.9% 15 ML NEB ONE (09:56)
== END 2018-07-11 09:20 | disposition home or self-care (01) ==
LOC: WCC 09:19
PROVIDERS: ATTEND Podiatrist Foot & Ankle Surgery
DX: T81.89XD Other complications of procedures, not elsewhere classified, subsequent encounter (principal)
CPT/HCPCS: 97605; A4218

== ENCOUNTER 2018-07-13 09:06 | Outpatient (CLI) | payer SELFPAY ==
--- NOTE | 2018-07-13 10:55 | PRG ---
DATE OF SERVICE: 07/13/2018 SUBJECTIVE: A 53-year-old patient who returns today for followup right foot wound, status post third , fourth and fifth toe amputation. The patient has been getting wound VAC changes on a daily basis. PHYSICAL EXAMINATION: The wound persists on the dorsal lateral right foot measuring 6 cm x 3.6 cm. There is deeper tunnel that goes approximately 1.5 cm which does go down to bone. Today on exam, the re was a loose soft bone within the wound within that tunnel. The remainder of the wound is 100% gra nular tissue. No periwound erythema, edema or warmth. No malodor, no purulent drainage. 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 PLAN: Full thickness debridement of the wound performed today. Wound surface was debrided of all bi ofilm and nonviable tissue down to a bleeding granular wound base with dermal curet. All exposed sof t necrotic bone was excised with a bone rongeur. Hemostasis was obtained with SurgiSeal. The patien t tolerated the procedure well. We will reapply the wound VAC today, continue with VAC 3 times a wee k. The patient will follow up with me in 1 week.
[2018-07-13] MEDS ORDERED: Sodium Chloride 0.9% 15 ML NEB ONE (15:56)
== END 2018-07-13 09:07 | disposition home or self-care (01) ==
LOC: WCC 09:06
PROVIDERS: ATTEND Podiatrist Foot & Ankle Surgery
DX: L97.514 Non-pressure chronic ulcer of other part of right foot with necrosis of bone (principal)
CPT/HCPCS: 11044; A4218

== ENCOUNTER 2018-07-17 08:06 | Outpatient (CLI) | payer SELFPAY | END 2018-07-17 08:07 | disposition home or self-care (01) | LOC: WCC 08:06 | PROVIDERS: ATTEND Podiatrist Foot & Ankle Surgery | DX: T81.89XD Other complications of procedures, not elsewhere classified, subsequent encounter (principal) | CPT/HCPCS: 97605 ==

== ENCOUNTER 2018-07-20 09:07 | Outpatient (CLI) | payer SELFPAY ==
--- NOTE | 2018-07-20 12:44 | PRG ---
DATE OF SERVICE: 07/20/2018 SUBJECTIVE: A 53-year-old male returns today for followup of right foot wound, status post right thi rd, fourth, and fifth toe amputations. She has been getting wound VAC changes 3 times a week. No pr oblems since last visit. PHYSICAL EXAMINATION: Ulceration remains on the right lateral forefoot measuring 5.5 cm x 3 cm x 2.5 cm, 75% granulation tissue, 25% slough. There is a deep tunnel which goes down to bone. No loose b one fragments at this time. No periwound erythema, edema, or warmth. 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 PLAN: Full thickness debridement subcutaneous tissue layer removing all nonviable tissue and biofilm from the wound base down to a bleeding granular wound base performed today with dermal curette. The patient tolerated the procedure well. We will continue with wound VAC changes 3 times a week, packi ng the tunnel with white foam and a Granulofoam on the surface. She will follow up with me in 1 week.
[2018-07-20] MEDS ORDERED: Sodium Chloride 0.9% 15 ML NEB ONE (15:40)
== END 2018-07-20 09:08 | disposition home or self-care (01) ==
LOC: WCC 09:07
PROVIDERS: ATTEND Podiatrist Foot & Ankle Surgery
DX: L97.419 Non-pressure chronic ulcer of right heel and midfoot with unspecified severity (principal); Z89.421 Acquired absence of other right toe(s)
CPT/HCPCS: A4218

== ENCOUNTER 2018-07-24 08:58 | Outpatient (CLI) | payer SELFPAY ==
[2018-07-24] MEDS ORDERED: Sodium Chloride 0.9% 15 ML NEB ONE (18:00)
== END 2018-07-24 08:59 | disposition home or self-care (01) ==
LOC: WCC 08:58
PROVIDERS: ATTEND Podiatrist Foot & Ankle Surgery
DX: T81.89XD Other complications of procedures, not elsewhere classified, subsequent encounter (principal)
CPT/HCPCS: 97605; A4218

== ENCOUNTER 2018-07-27 08:57 | Outpatient (CLI) | payer SELFPAY ==
--- NOTE | 2018-07-27 09:48 | PRG ---
DATE OF SERVICE: 07/27/2018 SUBJECTIVE: A 53-year-old female returns today for status post right fourth and fifth toe amputation s, has been doing wound VAC changes weekly and has had no problems with wound VACs since last week. No acute events and denies nausea, vomiting, fevers or chills. PHYSICAL EXAMINATION: Right foot ulceration remains measuring 4.5 cm x 3 cm x 3.2 cm, 90% granulatio n tissue, 10% slough. On debridement today, there was a small amount of loose bone and tendon within the deeper portion of the wound. No periwound erythema, edema or warmth. Slight malodor. No purul ent drainage. ASSESSMENT: Non-pressure chronic ulceration to the right lateral forefoot, status post right fourth and fifth toe amputations. PLAN: Full thickness debridement of subcutaneous tissue layer removing all nonviable tissue and biof ilm from the wound base as well as the loose bone and tendon from the deeper wound. The patient dharmeshe rated the procedure well. We are going to continue with 3 times a week wound VAC changes applying th e white foam into the tunneled area and GranuFoam on the surface. I will see her in 2 weeks.
[2018-07-27] MEDS ORDERED: Sodium Chloride 0.9% 15 ML NEB ONE (18:36)
== END 2018-07-27 08:58 | disposition home or self-care (01) ==
LOC: WCC 08:57
PROVIDERS: ATTEND Podiatrist Foot & Ankle Surgery
DX: L97.519 Non-pressure chronic ulcer of other part of right foot with unspecified severity (principal); Z89.421 Acquired absence of other right toe(s)
CPT/HCPCS: 11044; A4218

== ENCOUNTER 2018-07-31 08:29 | Outpatient (CLI) | payer SELFPAY ==
[2018-07-31] MEDS ORDERED: Sodium Chloride 0.9% 15 ML NEB ONE (08:41)
== END 2018-07-31 08:30 | disposition home or self-care (01) ==
LOC: WCC 08:29
PROVIDERS: ATTEND Podiatrist Foot & Ankle Surgery
DX: T81.89XD Other complications of procedures, not elsewhere classified, subsequent encounter (principal)
CPT/HCPCS: 97605; A4218

== ENCOUNTER 2018-08-03 08:39 | Outpatient (CLI) | payer SELFPAY ==
[2018-08-03] MEDS ORDERED: Sodium Chloride 0.9% 15 ML NEB ONE (08:41)
== END 2018-08-03 08:40 | disposition home or self-care (01) ==
LOC: WCC 08:39
PROVIDERS: ATTEND Podiatrist Foot & Ankle Surgery
DX: T81.89XD Other complications of procedures, not elsewhere classified, subsequent encounter (principal)
CPT/HCPCS: 97605; A4218

== ENCOUNTER 2018-08-06 08:23 | Outpatient (CLI) | payer SELFPAY ==
[2018-08-06] MEDS ORDERED: Sodium Chloride 0.9% 15 ML NEB ONE (08:42)
== END 2018-08-06 08:24 | disposition home or self-care (01) ==
LOC: WCC 08:23
PROVIDERS: ATTEND Podiatrist Foot & Ankle Surgery
DX: T81.89XD Other complications of procedures, not elsewhere classified, subsequent encounter (principal)
CPT/HCPCS: 97605; A4218

== ENCOUNTER 2018-08-08 08:59 | Outpatient (CLI) | payer SELFPAY ==
[2018-08-08] MEDS ORDERED: Sodium Chloride 0.9% 15 ML NEB ONE (18:00)
== END 2018-08-08 09:00 | disposition home or self-care (01) ==
LOC: WCC 08:59
PROVIDERS: ATTEND Podiatrist Foot & Ankle Surgery
DX: T81.89XD Other complications of procedures, not elsewhere classified, subsequent encounter (principal)
CPT/HCPCS: 97605; A4218

== ENCOUNTER 2018-08-10 09:06 | Outpatient (CLI) | payer SELFPAY ==
--- NOTE | 2018-08-10 20:26 | PRG ---
DATE OF SERVICE: 08/10/2018 WOUND CLINIC NOTE SUBJECTIVE: A 53-year-old female returns today for a followup of right foot wound, status post amputation. Doing well since last visit. Has continued with VAC changes. No problems with the wound VAC since last visit. OBJECTIVE: Ulcer is getting considerably smaller, measuring 4.3 cm x 2.2 cm with one central 1.7 cm tunnel with no longer probes to bone, 100% granular tissue. No periwound erythema, edema, or warmth. No purulent drainage. ASSESSMENT: Non-pressure chronic ulceration to the right forefoot, status post amputation. PLAN: 1. Full-thickness debridement of the subcutaneous tissue layer, removing all nonviable tissue and biofilm from the wound base down to bleeding glanular wound base. 2. We are going to continue with wound VAC changes at 125 mmHg and packing the tunnel with white foam. The patient will follow up with me in 2 weeks. Job ID: [id number]
== END 2018-08-10 09:07 | disposition home or self-care (01) ==
LOC: WCC 09:06
PROVIDERS: ATTEND Podiatrist Foot & Ankle Surgery
DX: L97.519 Non-pressure chronic ulcer of other part of right foot with unspecified severity (principal); Z89.431 Acquired absence of right foot
CPT/HCPCS: A4218

== ENCOUNTER 2018-08-13 09:08 | Outpatient (CLI) | payer SELFPAY | END 2018-08-13 09:09 | disposition home or self-care (01) | LOC: WCC 09:08 | PROVIDERS: ATTEND Podiatrist Foot & Ankle Surgery | DX: T81.89XD Other complications of procedures, not elsewhere classified, subsequent encounter (principal) | CPT/HCPCS: 97605; A4218 ==

== ENCOUNTER 2018-08-15 09:03 | Outpatient (CLI) | payer SELFPAY ==
[2018-08-15] MEDS ORDERED: Sodium Chloride 0.9% 15 ML NEB ONE (14:18)
== END 2018-08-15 09:04 | disposition home or self-care (01) ==
LOC: WCC 09:03
PROVIDERS: ATTEND Podiatrist Foot & Ankle Surgery
DX: T81.89XD Other complications of procedures, not elsewhere classified, subsequent encounter (principal)
CPT/HCPCS: 97605; A4218

== ENCOUNTER 2018-08-17 09:04 | Outpatient (CLI) | payer SELFPAY ==
[2018-08-17] MEDS ORDERED: Sodium Chloride 0.9% 15 ML NEB ONE (14:31)
== END 2018-08-17 09:05 | disposition home or self-care (01) ==
LOC: WCC 09:04
PROVIDERS: ATTEND Podiatrist Foot & Ankle Surgery
DX: T81.89XD Other complications of procedures, not elsewhere classified, subsequent encounter (principal)
CPT/HCPCS: 97605; A4218

== ENCOUNTER 2018-08-20 09:30 | Outpatient (CLI) | payer SELFPAY ==
[2018-08-20] MEDS ORDERED: Sodium Chloride 0.9% 15 ML NEB ONE (14:33)
== END 2018-08-20 09:31 | disposition home or self-care (01) ==
LOC: WCC 09:30
PROVIDERS: ATTEND Podiatrist Foot & Ankle Surgery
DX: T81.89XD Other complications of procedures, not elsewhere classified, subsequent encounter (principal)
CPT/HCPCS: 36416; 97605; A4218

== ENCOUNTER 2018-08-22 09:12 | Outpatient (CLI) | payer SELFPAY | END 2018-08-22 09:13 | disposition home or self-care (01) | LOC: WCC 09:12 | PROVIDERS: ATTEND Podiatrist Foot & Ankle Surgery | DX: T81.89XD Other complications of procedures, not elsewhere classified, subsequent encounter (principal) | CPT/HCPCS: 97605; A4218 ==

== ENCOUNTER 2018-08-24 09:20 | Outpatient (CLI) | payer SELFPAY ==
--- NOTE | 2018-08-24 15:04 | HP ---
SUBJECTIVE: The patient returns for right foot wound, status post right fourth and fifth toe amputation. She has been doing well with wound VAC changes since last visit. Denies nausea, vomiting, fevers, or chills. PHYSICAL EXAMINATION: Wound measuring 3 cm x 1.6 cm x 1.7 of depth, 100% granular wound base. No periwound erythema, edema, or warmth. ASSESSMENT: Non-pressure chronic ulceration, status post right foot fifth toe amputation. PLAN: 1. Full-thickness debridement of the subcutaneous tissue layer, removing all nonviable tissue and biofilm from the wound base down to bleeding granular wound base and curette. The patient tolerated the procedure well. 2. I suspect that the wound is not filling in the way that we would like it because the VAC that she has can be only set to 125 mmHg would be beneficial to be able to use the white foam with 150 mmHg. We may need to look into obtaining a better device for her and could suit that need if she continues to not be able fill it in this tunneled area. 3. She will follow up with me in 1 week for reevaluation. Job ID: [id number]
== END 2018-08-24 09:21 | disposition home or self-care (01) ==
LOC: WCC 09:20
PROVIDERS: ATTEND Podiatrist Foot & Ankle Surgery
DX: L97.519 Non-pressure chronic ulcer of other part of right foot with unspecified severity (principal); Z89.421 Acquired absence of other right toe(s)
CPT/HCPCS: A4218

== ENCOUNTER 2022-06-05 02:15 | Emergency (ER) | payer MEDICAID, SELFPAY ==
[2022-06-05 03:06] LABS: Hemoglobin 12.2 g/dL (12.0-16.0); Mean Corpuscular Hemoglobin 26.1 pg (27.0-31.0); Mean Corpuscular Volume 86.9 fL (78.0-98.0); RBC Distribution Width 14.8 % (11.5-14.5); Red Blood Cell (RBC) Count 4.67 mill/uL (4.20-5.40); White Blood Cell (WBC) Count 4.5 thou/uL (4.8-10.8)
[2022-06-05 03:10] LABS: ALT (SGPT) 20 U/L (8-55); AST (SGOT) 39 U/L (5-34); Albumin 3.2 g/dL (3.5-5.0); Alkaline Phosphatase 225 U/L (40-110); Anion Gap 17 mmol/L (10-20); BUN (Urea Nitrogen) 38 mg/dL (9.8-20.1); Calc. Creatinine Clearance 0 mL/min (70-130); Calcium 8.3 mg/dL (7.8-10.44); Carbon Dioxide 28 mmol/L (22-29); Chloride 99 mmol/L (98-107); Estimated GFR 23; Globulin 3.8 g/dL (2.4-3.5); Glucose 196 mg/dL (70-105); Potassium 4.9 mmol/L (3.5-5.1); Sodium 139 mmol/L (136-145)
[2022-06-05 03:36] LABS: #Eosinphils 0.1 thou/uL (0.0-0.7); #Lymphocytes 0.4 thou/uL (1.20-3.40); #Monocytes 0.4 thou/uL (0.11-0.59); #Neutrophils 3.6 thou/uL (1.40-6.50); %Basophils 0.2 % (0.0-1.0); %Eosinophils 1.2 % (0.0-10.0); %Lymphocytes 9.5 % (21.0-51.0); %Monocytes 8.7 % (0.0-10.0); %Neutrophils 80.5 % (42.0-75.0); Mean Platelet Volume 9.8 fL (7.4-10.4); Platelet Count 113 thou/uL (130-400); Platelet Morphology Comment Appears Decreased
[2022-06-05] MEDS ORDERED: Furosemide 40 MG/4 ML VIAL ONE (04:25)
[2022-06-05 08:08] LABS: SARS-CoV-2 NAA Rapid Test Not Detected (NotDetected)
== END 2022-06-05 08:08 | disposition short-term general hospital (02) ==
LOC: ERS 02:15
DX: J90 Pleural effusion, not elsewhere classified (principal); R09.02 Hypoxemia; I11.0 Hypertensive heart disease with heart failure; I50.9 Heart failure, unspecified; F17.220 Nicotine dependence, chewing tobacco, uncomplicated; Z20.822 Contact with and (suspected) exposure to COVID-19
CPT/HCPCS: 36415; 36416; 71045; 80053; 83880; 84484; 85025; 93005; 94660; 96374; J1940; U0002